=== PATIENT | male | born 1995 | race African-American/Black ===

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

== ENCOUNTER 2018-08-08 00:22 | Emergency (ER) | payer BC, OTHER ==
[2018-08-08 01:26] LABS: Appearance,Urine Clear (Clear); Bilirubin,Urine Negative (Negative); Blood,Urine Negative (Negative); Color,Urine Yellow; Glucose,Urine (UA) Negative (Negative); Ketones,Urine Negative (Negative); Leukocyte Esterase,Urine Negative (Negative); Nitrite,Urine Negative (Negative); PH, Urine 5.5 (5.0-8.0); Protein,Urine Trace (Negative); Specific Gravity,Urine 1.023 (1.001-1.035); Urobilinogen,Urine <2.0 mg/dL (<2.0)
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
[2018-08-08] MEDS ORDERED: cefTRIAXone 250 MG VIAL IM STA (01:58)
[2018-08-08] MEDS ORDERED: AZITHROMYCIN 250 MG TAB PO STA (01:58)
[2018-08-08 02:25] VITALS: BP 118/82; PULSE 67; RESP 16; TEMP 98
[2018-08-09 13:56] LABS: C. trachomatis,PCR Negative (Neg,Equiv); Chlamydia trachomatis Source Urine; N. gonorrhoeae,PCR Negative (Neg,Equiv); Neisseria Source Urine
== END 2018-08-08 02:24 | disposition home or self-care (01) ==
LOC: EC 00:22
DX: Z20.2 Contact with and (suspected) exposure to infections with a predominantly sexual mode of transmission (principal); F17.200 Nicotine dependence, unspecified, uncomplicated
CPT/HCPCS: 81003; 87491; 87591; 99283; 96372; J0696

== ENCOUNTER 2018-08-14 15:12 | Inpatient (IN) | payer BC ==
--- NOTE | 2018-08-14 15:36 | ED ---
General Adult HPI - General Chief complaint: Psychiatric Symptoms Stated complaint: Mental Health Time Seen by Provider: 08/14/18 15:22 Source: patient, RN notes reviewed Mode of arrival: ambulatory Limitations: no limitations - History of Present Illness Initial comments: Patient is a pleasant 22-year-old male presenting to the emergency department with concerns for mental health evaluation. Patient states symptoms have progressed over the past few months. no history of similar symptoms. Patient states he is having racing thoughts and is hard to concentrate. Patient does hear voices. Patient occasionally has thoughts of self-harm however does not believe he would act on them. No homicidal thoughts. Patient does feel paranoid at times. Patient denies any homicidal thoughts. Rare alcohol use. Patient has previously used methamphetamine and Suboxone however does not use frequently. No physical complaints. - Related Data Home Medications Medication Instructions Recorded Confirmed No Known Home Medications 08/24/16 08/24/16 Allergies Allergy/AdvReac Type Severity Reaction Status Date / Time No Known Allergies Allergy Verified 08/14/18 15:20 Review of Systems ROS Statement: Those systems with pertinent positive or pertinent negative responses have been documented in the HPI. ROS Other: All systems not noted in ROS Statement are negative. Constitutional: Denies: fever Eyes: Denies: eye pain ENT: Denies: ear pain Respiratory: Denies: cough Cardiovascular: Denies: chest pain Endocrine: Denies: fatigue Gastrointestinal: Denies: abdominal pain Genitourinary: Denies: dysuria Musculoskeletal: Denies: back pain Skin: Denies: rash Neurological: Denies: headache, weakness Psychiatric: Reports: auditory hallucinations Past Medical History Past Medical History: No Reported History History of Any Multi-Drug Resistant Organisms: None Reported Past Surgical History: No Surgical Hx Reported Past Psychological History: Depression Smoking Status: Current every day smoker Past Alcohol Use History: Occasional Past Drug Use History: Cocaine, Marijuana, Methamphetamine General Exam Limitations: no limitations General appearance: alert, in no apparent distress Head exam: Present: atraumatic Eye exam: Present: normal appearance, PERRL, EOMI. Absent: nystagmus ENT exam: Present: normal oropharynx Neck exam: Present: normal inspection Respiratory exam: Present: normal lung sounds bilaterally Cardiovascular Exam: Present: regular rate, normal rhythm GI/Abdominal exam: Present: soft. Absent: tenderness Extremities exam: Present: normal inspection Neurological exam: Present: alert Expanded Focused psych exam: Present: flight of ideas Skin exam: Present: normal color Course Vital Signs 08/14/18 15:14 Temperature 98.5 F Pulse Rate 99 Respiratory 18 Rate Blood Pressure 149/104 O2 Sat by Pulse 98 Oximetry Disposition Referrals: None,Stated [Primary Care Provider] - 1-2 days
[2018-08-14 18:11] LABS: Amphetamine Screen,Urine Not Detected (NotDetected); Barbiturate Screen,Urine Not Detected (NotDetected); Benzodiazepines Screen,Urine Not Detected (NotDetected); Cocaine Screen,Urine Not Detected (NotDetected); Methadone Screen, Urine Not Detected (NotDetected); Opiate Screen,Urine Not Detected (NotDetected); Oxycodone Screen, Urine Not Detected (NotDetected); Phencyclidine Screen,Urine Not Detected (NotDetected); Tricyclic Antidepressant,Urine Not Detected (NotDetected); Urn Cannabinoid Scrn Detected (NotDetected)
[2018-08-14] MEDS ORDERED: ALPRAZolam 1 MG TAB PO STA (18:18)
[2018-08-14] MEDS ORDERED: MAG HYDROX/AL HYDROX/SIMETH 30 ML CUP PO PRN (18:41)
[2018-08-14] MEDS ORDERED: ZIPRASIDONE 20 MG VIAL IM PRN (18:41)
[2018-08-14] MEDS ORDERED: MAGNESIUM HYDROXIDE 2,400 MG/10 ML CUP PO PRN (18:41)
[2018-08-14] MEDS: LORazepam 2 MG/ML INJ IM PRN (19:16)
--- NOTE | 2018-08-14 20:10 | P.PN ---
Progress Note - Text Progress Note Date: 08/14/18 Called and notified of consult. Per [facility] staff patient is not appropriate to be seen at this time as was agitated and required medications and now resting. Will call in AM to see if patient is appropriate for medical exam.
[2018-08-15] MEDS ORDERED: ZIPRASIDONE 20 MG VIAL IM ONE (08:27)
[2018-08-15] MEDS ORDERED: WATER FOR INJECTION, STERILE 0 ML IV ONE (08:27)
[2018-08-15 09:46] LABS: Basophils # (A) 0.1 k/uL (0-0.2); Basophils % (A) 1 %; Eosinophils # (A) 0.1 k/uL (0-0.7); Eosinophils % (A) 1 %; HCT 44.4 % (39.0-53.0); HGB 14.5 gm/dL (13.0-17.5); Lymphocytes # (A) 1.5 k/uL (1.0-4.8); Lymphocytes % (A) 20 %; MCH 30.2 pg (25.0-35.0); MCHC 32.6 g/dL (31.0-37.0); MCV 92.7 fL (80.0-100.0); Mean Platelet Volume 7.2; Monocytes # (A) 0.4 k/uL (0-1.0); Monocytes % (A) 6 %; Neutrophils # (A) 5.2 k/uL (1.3-7.7); Neutrophils % (A) 71 %; Platelet Count 227 k/uL (150-450); RBC 4.79 m/uL (4.30-5.90); RDW 13.9 % (11.5-15.5); WBC 7.4 k/uL (4.0-11.0)
[2018-08-15 10:21] LABS: ALT 29 U/L (21-72); AST 26 U/L (17-59); Albumin 4.5 g/dL (3.5-5.0); Alkaline Phosphatase 54 U/L (38-126); Anion Gap 6 mmol/L; Blood Urea Nitrogen 13 mg/dL (9-20); Calcium 9.8 mg/dL (8.4-10.2); Carbon Dioxide 30 mmol/L (22-30); Chloride 107 mmol/L (98-107); Cholesterol 116 mg/dL (<200); Glucose 84 mg/dL (74-99); HDL Cholesterol 44 mg/dL (40-60); LDL Cholesterol,Calculated 58 mg/dL (0-99); Potassium 4.2 mmol/L (3.5-5.1); Sodium 143 mmol/L (137-145); Total Bilirubin 0.8 mg/dL (0.2-1.3); Triglycerides 71 mg/dL (<150)
--- NOTE | 2018-08-15 14:05 | P.CONS ---
History of Present Illness - Reason for Consult Consult date: 08/15/18 Medical management - History of Present Illness This is a 22-year-old male with no significant past medical history who pre sented to the emergency room for further evaluation of racing thoughts and having hard time to concentrate. Patient said that his symptoms started several weeks ago and is being getting progressively worse. At times he feels that he is paranoid. He denies any visual or audible hallucination. No suicidal or homicidal ideation. Patient was admitted to the psych unit for further evaluation. I was asked to see him for medical management. Patient said that he feels a lot better today. He denies any complaints or concerns. Review of Systems Review of system: 14 points review of systems were obtained and were negative except to what were mentioned in the HPI. Past Medical History Past Medical History: No Reported History History of Any Multi-Drug Resistant Organisms: None Reported Past Surgical History: No Surgical Hx Reported Past Psychological History: Depression Smoking Status: Current every day smoker Past Alcohol Use History: Occasional Past Drug Use History: Cocaine, Marijuana, Methamphetamine Medications and Allergies Home Medications Medication Instructions Recorded Confirmed Type No Known Home Medications 08/24/16 08/14/18 History Allergies Allergy/AdvReac Type Severity Reaction Status Date / Time No Known Allergies Allergy Verified 08/14/18 17:08 Physical Exam Vitals: Vital Signs Temp Pulse Pulse Resp BP BP Pulse Ox 08/14/18 19:44 98.5 F 67 18 128/87 08/14/18 18:27 98.7 F 60 20 138/87 98 08/14/18 15:14 98.5 F 99 18 149/104 98 Intake and Output 08/14/18 08/15/18 08/15/18 22:59 06:59 14:59 Other: Weight 67.5 kg General: The patient is awake and alert, in no distress Eye: there is normal conjunctiva bilaterally. Neck: The neck is supple, there is no JVD. Cardiovascular: Normal S1-S2, no S3-S4, no murmurs. Respiratory: Lungs clear to auscultation bilaterally Gastrointestinal: Abdomen is soft, nontender Musculoskeletal: There is no pedal edema. Neurological:. Speech is normal. Skin: Skin is warm and dry Results CBC & Chem 7: 08/15/18 08:49 08/15/18 08:49 Labs: Abnormal Lab Results - Last 24 Hours (Table) 08/14/18 Range/Units 17:49 U Marijuana (THC) Screen Detected H (NotDetected) Assessment and Plan Assessment: 1. Acute psychosis, now resolved. Awaiting psychiatry evaluation. Management per psychiatry. 2. Marijuana abuse: Counseled to quit Today, I reviewed his medication list and lab work results. Thank you very much for the consultation. We will follow up on him on as needed basis.
[2018-08-15] MEDS: NICOTINE 14MG/24HR PATCH TRANSDERM SCH (15:47)
[2018-08-15 20:30] LABS: Hemoglobin A1C 5.2 % (4.0-6.0)
[2018-08-15] MEDS ORDERED: lamoTRIgine 25 MG TAB PO SCH (21:00)
[2018-08-15] MEDS ORDERED: PALIPERIDONE 3 MG TAB.ER.24 PO SCH (21:00)
[2018-08-16] MEDS: LORazepam 1 MG TAB PO PRN ×2 (00:48→18:44)
[2018-08-16] MEDS: NICOTINE 14MG/24HR PATCH TRANSDERM SCH (09:11)
[2018-08-16] MEDS: HALOPERIDOL LACTATE 5 MG/ML 1 ML VIAL IM PRN ×2 (09:25→22:50)
[2018-08-16] MEDS: LORazepam 2 MG/ML INJ IM PRN (09:33)
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
--- NOTE | 2018-08-16 12:06 | P.PN ---
Subjective Progress Note Date: 08/16/18 Principal diagnosis: Schizoaffective bipolar type 08/16/2018: Chart reviewed, discussed with nursing staff, discussed in team today regarding his acting out banging his head this morning and having difficulty focusing concentration. He was given Haldol and Ativan to calm himself down. When interviewed patient and his room use easily awoken and stated that the voices are still there is banging his head to get rid of the voices he feels afraid and he wants to get the medicine to help him to get better. He has depression and anxiety as well but with racing thoughts with the devil talking to in his brain. Objective - Vital Signs Vital signs: Vital Signs Temp 97.4 F L 08/16/18 01:06 Pulse 55 L 08/16/18 01:06 Resp 14 08/16/18 01:06 BP 148/93 08/16/18 01:06 Pulse Ox 98 08/14/18 18:27 - Labs CBC & Chem 7: 08/15/18 08:49 08/15/18 08:49 Assessment and Plan Assessment: Patient is a pleasant 22-year-old male presenting to the emergency department with concerns for mental health evaluation. Patient states symptoms have progressed over the past few months. no history of similar symptoms. Patient states he is having racing thoughts and is hard to concentrate. Patient does hear voices. Patient occasionally has thoughts of self-harm however does not believe he would act on them. No homicidal thoughts. Patient does feel paranoid at times. Patient denies any homicidal thoughts. Rare alcohol use. Patient has previously used methamphetamine and Suboxone however does not use frequently. No physical complaints. pt states that he is here because his mother dropped him off to "get help and see if I need pills or something." pt states, "I'm just being me. Trying to be a good person. Being an [place]. I mean, living the [place] dream. If I need pills, I'll take them. I'm not the type of person to abuse drugs. I abuse marijuana. I'm just being honest." pt reports that there are "things playing with my brain." When asked to elaborate, pt states that ghosts are playing with his brain. pt also reports that he has been attempting to get a medical [employer] card and feels as though this will help with his problems. When asked about current psychiatric treatment, pt states, "I hope not. Hope. I hope I don't, but I need it. Hope I don't even need the medicine." When asked about previous psychiatric hospitalization, pt states, "Besides paying $300 for a psych eval, no. I got it from that place behind [facility]. After I get that one, I'm going to a different one. Behind I don't know." pt also states that "my mind just thinks about random shit all the time." pt states that he has had suicidal ideation within the past 6 months. When asked if he currently was experiencing suicidal ideation, pt states, "Yes I have, but no. Just normal stuff like hey what's that." pt reports that he attempted suicide a couple of times in the past but was unable to recall when or what he did to attempt suicide. pt states, "Couple times but I tried not to. I try to stay happy more than anything. Making people happy makes me happy. It's not a surprise I want a dog named Happy. I have two dogs at home. I got coping skills. Not just pot or meth or anything like that. I got lots of coping skills." pt reports that he has difficulty falling asleep "because I feel like people are out to get me." pt also states, "When I sleep, all I see is black. I don't dream. I don't remember anything from 7 or 8. I'm just being honest." pt states that he has had a decrease and an increase in appetite and is unable to clarify if there is any change in appetite pt states that his use is "not often" and that it is "maybe one or two." When asked for clarification, pt states, "gram or 2 and then the next day a gram. Maybe. I don't know." pt then reports daily use and states, "I've been trying to get a medical care for a couple years." pt states that he does not drink [place]. pt reports, "If I do, I prefer like 2 shots. I really don't like alcohol. I think it's because my mom drinks wine coolers and I like those over anything." - Related Data Mental Status Examination - General Appearance: [ casual, appears stated age Speech/Language: [ rapid, rambled, mumbling, expressive, mute, loud Attitude/Behavior: [ guarded, irritable, withdrawn, indifferent Mood: [depressed, anxious, irritable, angry, fearful, hopelessness Affect: [ lively, incongruent, labile Orientation: [08/15/2018 time, person, place situation] Thought Content: [delusions Risk Factors: [command hallucinations to kill himself suicidal (ideations, plan), and/or Homicidal (ideations, plan)] Perception: [hallucinations (auditory, visual, tactile)] Thought Processes: [ concrete, circumstantial Concentration/Attention Span: [ impaired] [Per observation and interview with the patient] Recent Memory: [ impaired] [0 out of 3 in 3 minutes] Remote Memory: [ impaired] [past events, as related history] Intelligence: [below average] [based on history, based on vocabulary, syntax, grammar, and content] Judgement: [poor] [per patient's behavior/history of present illness] Insight: [ poor] [understanding severity of illness/history of present illness] Admitting Diagnosis: [schizoaffective disorder bipolar type acute psychosis] (1) Depressed Current Visit: Yes Status: Acute Code(s): F32.9 - MAJOR DEPRESSIVE DISORDER, SINGLE EPISODE, UNSPECIFIED SNOMED Code(s): 37727175 Plan: 08/16/2018: He was started on Invega and Lamictal on 08/15/2018. Today his mood is still incongruent and auditory and visual hallucinations continue. His dose of Invega will go to 6 mg by mouth daily at bedtime and Lamictal we'll go to 50 mg by mouth daily at bedtime. Close observation of this individual on 15 minute checks and encourage him to integrated [facility] milieu therapeutic environment including groups and meetings with staff. He has had a elevated blood pressure which I think is due to psychosis and possible withdrawal from the medicine that wasn't on urine drug screen and will use Catapres 0.1 mg by mouth twice a day. Time with Patient: Less than 30
[2018-08-16] MEDS: cloNIDine HCL 0.1 MG TAB PO SCH (20:59)
[2018-08-16] MEDS ORDERED: PALIPERIDONE 6 MG TAB.ER.24 PO SCH (21:00)
[2018-08-16] MEDS ORDERED: lamoTRIgine 25 MG TAB PO SCH (21:00)
[2018-08-17] MEDS: cloNIDine HCL 0.1 MG TAB PO SCH ×2 (08:17→21:04)
[2018-08-17] MEDS: NICOTINE 14MG/24HR PATCH TRANSDERM SCH (08:17)
--- NOTE | 2018-08-17 13:40 | P.PN ---
Subjective Progress Note Date: 08/17/18 Principal diagnosis: Schizoaffective bipolar type 08/16/2018: Chart reviewed, discussed with nursing staff, discussed in team today regarding his acting out banging his head this morning and having difficulty focusing concentration. He was given Haldol and Ativan to calm himself down. When interviewed patient and his room use easily awoken and stated that the voices are still there is banging his head to get rid of the voices he feels afraid and he wants to get the medicine to help him to get better. He has depression and anxiety as well but with racing thoughts with the devil talking to in his brain. 08/17/2018: Chart reviewed and discussed with nursing staff discussed in team. Patient was able to come up nursing staff last night and that he had hallucinations and had difficult time with them and ask for when necessary Haldol. Today he still is unsure of what a deferral from the court means and wants to go home and explained to him he cannot he is here on a court order to receive treatment. The voices are still prominent in his head telling him what to do. Objective - Vital Signs Vital signs: Vital Signs Temp 98.0 F 08/17/18 06:09 Pulse 73 08/17/18 06:09 Resp 14 08/17/18 06:09 BP 117/60 08/17/18 06:09 Pulse Ox 98 08/14/18 18:27 - Labs CBC & Chem 7: 08/15/18 08:49 08/15/18 08:49 Assessment and Plan Assessment: Patient is a pleasant 22-year-old male presenting to the emergency department with concerns for mental health evaluation. Patient states symptoms have progressed over the past few months. no history of similar symptoms. Patient states he is having racing thoughts and is hard to concentrate. Patient does hear voices. Patient occasionally has thoughts of self-harm however does not believe he would act on them. No homicidal thoughts. Patient does feel paranoid at times. Patient denies any homicidal thoughts. Rare alcohol use. Patient has previously used methamphetamine and Suboxone however does not use frequently. No physical complaints. pt states that he is here because his mother dropped him off to "get help and see if I need pills or something." pt states, "I'm just being me. Trying to be a good person. Being an [place]. I mean, living the [place] dream. If I need pills, I'll take them. I'm not the type of person to abuse drugs. I abuse marijuana. I'm just being honest." pt reports that there are "things playing with my brain." When asked to elaborate, pt states that ghosts are playing with his brain. pt also reports that he has been attempting to get a medical marijuana card and feels as though this will help with his problems. When asked about current psychiatric treatment, pt states, "I hope not. Hope. I hope I don't, but I need it. Hope I don't even need the medicine." When asked about previous psychiatric hospitalization, pt states, "Besides paying $300 for a psych eval, no. I got it from that place [facility]. After I get that one, I'm going to a different one. Behind I don't know." pt also states that "my mind just thinks about random shit all the time." pt states that he has had suicidal ideation within the past 6 months. When asked if he currently was experiencing suicidal ideation, pt states, "Yes I have, but no. Just normal stuff like hey what's that." pt reports that he attempted suicide a couple of times in the past but was unable to recall when or what he did to attempt suicide. pt states, "Couple times but I tried not to. I try to stay happy more than anything. Making people happy makes me happy. It's not a surprise I want a dog named Happy. I have two dogs at home. I got coping skills. Not just pot or meth or anything like that. I got lots of coping skills." pt reports that he has difficulty falling asleep "because I feel like people are out to get me." pt also states, "When I sleep, all I see is black. I don't dream. I don't remember anything from 7 or 8. I'm just being honest." pt states that he has had a decrease and an increase in appetite and is unable to clarify if there is any change in appetite pt states that his use is "not often" and that it is "maybe one or two." When asked for clarification, pt states, "gram or 2 and then the next day a gram. Maybe. I don't know." pt then reports daily use and states, "I've been trying to get a medical care for a couple years." pt states that he does not drink alcohol. pt reports, "If I do, I prefer like 2 shots. I really don't like alcohol. I think it's because my mom drinks wine coolers and I like those over anything." - Related Data Mental Status Examination - General Appearance: [ casual, appears stated age Speech/Language: [ rapid, rambled, mumbling, expressive, mute, loud Attitude/Behavior: [ guarded, irritable, withdrawn, indifferent Mood: [depressed, anxious, irritable, angry, fearful, hopelessness Affect: [ lively, incongruent, labile Orientation: [08/15/2018 time, person, place situation] Thought Content: [delusions Risk Factors: [command hallucinations to kill himself suicidal (ideations, plan), and/or Homicidal (ideations, plan)] Perception: [hallucinations (auditory, visual, tactile)] Thought Processes: [ concrete, circumstantial Concentration/Attention Span: [ impaired] [Per observation and interview with the patient] Recent Memory: [ impaired] [0 out of 3 in 3 minutes] Remote Memory: [ impaired] [past events, as related history] Intelligence: [below average] [based on history, based on vocabulary, syntax, grammar, and content] Judgement: [poor] [per patient's behavior/history of present illness] Insight: [ poor] [understanding severity of illness/history of present illness] Admitting Diagnosis: [schizoaffective disorder bipolar type acute psychosis] (1) Depressed Current Visit: Yes Status: Acute Code(s): F32.9 - MAJOR DEPRESSIVE DISORDER, SINGLE EPISODE, UNSPECIFIED SNOMED Code(s): 27933213 Plan: 08/16/2018: He was started on Invega and Lamictal on 08/15/2018. Today his mood is still incongruent and auditory and visual hallucinations continue. His dose of Invega will go to 6 mg by mouth daily at bedtime and Lamictal we'll go to 50 mg by mouth daily at bedtime. Close observation of this individual on 15 minute checks and encourage him to integrated [facility] [facility] therapeutic environment including groups and meetings with staff. He has had a elevated blood pressure which I think is due to psychosis and possible withdrawal from the medicine that wasn't on urine drug screen and will use Catapres 0.1 mg by mouth twice a day. 08/17/2018: Since he continues to have auditory hallucinations will increase his Invega to 9 mg by mouth daily at bedtime and increase his Lamictal to 100 mg by mouth daily at bedtime. Explained in detail with the deferral process was and the definition of insanity and told him that he is responding to internal stimuli while we are talking.. He also be on 15 minute checks and encourage him to integrated [place] [facility] milieu therapeutic environment including groups and meetings with staff. This young man still struggles with command hallucinations and fluctuating moods and rapid thoughts. He is a shelter hold. Time with Patient: Less than 30
[2018-08-17] MEDS ORDERED: PALIPERIDONE 3 MG TAB.ER.24 PO SCH (21:00)
[2018-08-17] MEDS ORDERED: lamoTRIgine 100 MG TAB PO SCH (21:00)
[2018-08-18] MEDS: LORazepam 2 MG/ML INJ IM PRN (02:06)
[2018-08-18] MEDS: HALOPERIDOL LACTATE 5 MG/ML 1 ML VIAL IM PRN ×2 (02:06→22:52)
[2018-08-18] MEDS ORDERED: LORazepam 2 MG/ML INJ IM STA (02:57)
[2018-08-18] MEDS ORDERED: LORazepam 1 MG TAB PO STA (02:57)
--- NOTE | 2018-08-18 03:25 | XR ---
EXAM: XR Right Hand Complete, 3 or More Views CLINICAL HISTORY: punched window out TECHNIQUE: Frontal, lateral and oblique views of the right hand. COMPARISON: No relevant prior studies available. FINDINGS: Bones/joints: Unremarkable. No fracture. No dislocation. Soft tissues: Unremarkable. No radiopaque foreign body. IMPRESSION: No fracture
[2018-08-18] MEDS: cloNIDine HCL 0.1 MG TAB PO SCH ×2 (08:03→20:20)
[2018-08-18] MEDS: NICOTINE 14MG/24HR PATCH TRANSDERM SCH (08:03)
[2018-08-18] MEDS ORDERED: PALIPERIDONE IM 234 MG/1.5 ML SYG IM STA ×2 (11:28→13:44)
--- NOTE | 2018-08-18 11:30 | P.PN ---
Subjective Progress Note Date: 08/18/18 Principal diagnosis: Schizoaffective bipolar type 08/16/2018: Chart reviewed, discussed with nursing staff, discussed in team today regarding his acting out banging his head this morning and having difficulty focusing concentration. He was given Haldol and Ativan to calm himself down. When interviewed patient and his room use easily awoken and stated that the voices are still there is banging his head to get rid of the voices he feels afraid and he wants to get the medicine to help him to get better. He has depression and anxiety as well but with racing thoughts with the devil talking to in his brain. 08/17/2018: Chart reviewed and discussed with nursing staff discussed in team. Patient was able to come up nursing staff last night and that he had hallucinations and had difficult time with them and ask for when necessary Haldol. Today he still is unsure of what a deferral from the court means and wants to go home and explained to him he cannot he is here on a court order to receive treatment. The voices are still prominent in his head telling him what to do. 08/18/2018: Chart reviewed and discussed nursing staff and had a team meeting this morning. Discussed with patient regarding the use of intramuscular Invega since he is on a court order it would be best to maintain his taking his medicines since she has voiced he does not want to take his medicines. He still responding to internal stimuli. Objective - Vital Signs Vital signs: Vital Signs Temp 99.3 F 08/18/18 00:16 Pulse 67 08/18/18 08:04 Resp 18 08/18/18 08:04 BP 139/82 08/18/18 08:04 Pulse Ox 98 08/14/18 18:27 - Labs CBC & Chem 7: 08/15/18 08:49 08/15/18 08:49 Assessment and Plan Assessment: Patient is a pleasant 22-year-old male presenting to the emergency department with concerns for mental health evaluation. Patient states symptoms have progressed over the past few months. no history of similar symptoms. Patient states he is having racing thoughts and is hard to concentrate. Patient does hear voices. Patient occasionally has thoughts of self-harm however does not believe he would act on them. No homicidal thoughts. Patient does feel paranoid at times. Patient denies any homicidal thoughts. Rare alcohol use. Patient has previously used methamphetamine and Suboxone however does not use frequently. No physical complaints. pt states that he is here because his mother dropped him off to "get help and see if I need pills or something." pt states, "I'm just being me. Trying to be a good person. Being an English. I mean, living the English dream. If I need pills, I'll take them. I'm not the type of person to abuse drugs. I abuse marijuana. I'm just being honest." pt reports that there are "things playing with my brain." When asked to elaborate, pt states that ghosts are playing with his brain. pt also reports that he has been attempting to get a medical marijuana card and feels as though this will help with his problems. When asked about current psychiatric treatment, pt states, "I hope not. Hope. I hope I don't, but I need it. Hope I don't even need the medicine." When asked about previous psychiatric hospitalization, pt states, "Besides paying $300 for a psych eval, no. I got it from that place behind [facility]. After I get that one, I'm going to a different one. Behind I don't know." pt also states that "my mind just thinks about random shit all the time." pt states that he has had suicidal ideation within the past 6 months. When asked if he currently was experiencing suicidal ideation, pt states, "Yes I have, but no. Just normal stuff like hey what's that." pt reports that he attempted suicide a couple of times in the past but was unable to recall when or what he did to attempt suicide. pt states, "Couple times but I tried not to. I try to stay happy more than anything. Making people happy makes me happy. It's not a surprise I want a dog named Happy. I have two dogs at home. I got coping skills. Not just pot or meth or anything like that. I got lots of coping skills." pt reports that he has difficulty falling asleep "because I feel like people are out to get me." pt also states, "When I sleep, all I see is black. I don't dream. I don't remember anything from 7 or 8. I'm just being honest." pt states that he has had a decrease and an increase in appetite and is unable to clarify if there is any change in appetite pt states that his use is "not often" and that it is "maybe one or two." When asked for clarification, pt states, "gram or 2 and then the next day a gram. Maybe. I don't know." pt then reports daily use and states, "I've been trying to get a medical care for a couple years." pt states that he does not drink alcohol. pt reports, "If I do, I prefer like 2 shots. I really don't like alcohol. I think it's because my mom drinks wine coolers and I like those over anything." - Related Data Mental Status Examination - General Appearance: [ casual, appears stated age Speech/Language: [ rapid, rambled, mumbling, expressive, mute, loud Attitude/Behavior: [ guarded, irritable, withdrawn, indifferent Mood: [depressed, anxious, irritable, angry, fearful, hopelessness Affect: [ lively, incongruent, labile Orientation: [08/15/2018 time, person, place situation] Thought Content: [delusions Risk Factors: [command hallucinations to kill himself suicidal (ideations, plan), and/or Homicidal (ideations, plan)] Perception: [hallucinations (auditory, visual, tactile)] Thought Processes: [ concrete, circumstantial Concentration/Attention Span: [ impaired] [Per observation and interview with the patient] Recent Memory: [ impaired] [0 out of 3 in 3 minutes] Remote Memory: [ impaired] [past events, as related history] Intelligence: [below average] [based on history, based on vocabulary, syntax, grammar, and content] Judgement: [poor] [per patient's behavior/history of present illness] Insight: [ poor] [understanding severity of illness/history of present illness] Admitting Diagnosis: [schizoaffective disorder bipolar type acute psychosis] (1) Depressed Current Visit: Yes Status: Acute Code(s): F32.9 - MAJOR DEPRESSIVE DISORDER, SINGLE EPISODE, UNSPECIFIED SNOMED Code(s): 75042864 Plan: 08/16/2018: He was started on Invega and Lamictal on 08/15/2018. Today his mood is still incongruent and auditory and visual hallucinations continue. His dose of Invega will go to 6 mg by mouth daily at bedtime and Lamictal we'll go to 50 mg by mouth daily at bedtime. Close observation of this individual on 15 minute checks and encourage him to integrated [place] milieu therapeutic environment including groups and meetings with staff. He has had a elevated blood pressure which I think is due to psychosis and possible withdrawal from the medicine that wasn't on urine drug screen and will use Catapres 0.1 mg by mouth twice a day. 08/17/2018: Since he continues to have auditory hallucinations will increase his Invega to 9 mg by mouth daily at bedtime and increase his Lamictal to 100 mg by mouth daily at bedtime. Explained in detail with the deferral process was and the definition of insanity and told him that he is responding to internal stimuli while we are talking.. He also be on 15 minute checks and encourage him to integrated [place] milieu milieu therapeutic environment including groups and meetings with staff. This young man still struggles with command hallucinations and fluctuating moods and rapid thoughts. 08/18/2018: He continues to have auditory hallucinations and will use Invega 234 mg injection today with his neck shot being 09/15/2018. His Lamictal was increased to 200 mg at bedtime. Discussed in detail the deferral process again he has a great misunderstanding that he is court ordered and treatment will continue. 15 minute checks should be maintained and encouraged him to be integrated in [place] milieu therapeutic environment. Time with Patient: Less than 30
[2018-08-18] MEDS: LORazepam 1 MG TAB PO PRN (16:54)
[2018-08-18] MEDS: BENZTROPINE MESYLATE 0.5 MG TAB PO SCH (20:20)
[2018-08-18] MEDS: lamoTRIgine 100 MG TAB PO SCH (20:20)
[2018-08-19] MEDS: LORazepam 1 MG TAB PO PRN ×3 (01:35→21:42)
[2018-08-19] MEDS: NICOTINE 14MG/24HR PATCH TRANSDERM SCH (07:53)
[2018-08-19] MEDS: cloNIDine HCL 0.1 MG TAB PO SCH ×2 (07:54→20:11)
[2018-08-19] MEDS: BENZTROPINE MESYLATE 0.5 MG TAB PO SCH ×2 (07:54→20:10)
--- NOTE | 2018-08-19 10:59 | P.PN ---
Progress Note - Text Interval history: The patient is found in the hallway he follows me to an interview room. He indicates his mood is okay. He endorses ongoing auditory hallucinations directing him to harm himself or caused property damage. He states he's had voices his whole life but they do seem to be worse recently. He has received his first invega systemic injection yesterday. He indicates that he has been eating he feels he sleeping fine staff reported he slept 5 hours and was restless. Mental status exam: The patient is alert he is a disheveled appearance he is dressed in his own clothing he seated in the chair calmly during the session. He keeps his arms folded during the conversation. He indicates having command auditory hallucinations directing harm to himself and to cause property damage. He feels he is able to manage these however. He feels since he's been on medication there has been some moments of peace in between the hallucinations. He is reporting no suicidal or homicidal thoughts. Affect is bizarre at times he will have exaggerated smiling at odd times. Insight and judgment limited. He demonstrates no repetitive involuntary movements. During the session he demonstrates no verbal or physical aggressiveness. Plan: The patient continues to experience acute symptoms of psychosis. Even though he did receive his first injection of Invega Sustenna we will transition him off of the oral more gradually. I will prescribe 6 mg at bedtime. Nursing staff report that he tends to have more agitation and psychosis in the evening hours. Vital signs reviewed they're within normal limits. We will continue to provide reality orientation when possible. Will continue to monitor him for safety.
[2018-08-19] MEDS: HALOPERIDOL LACTATE 5 MG/ML 1 ML VIAL IM PRN (13:53)
[2018-08-19] MEDS: PALIPERIDONE 6 MG TAB.ER.24 PO SCH (20:11)
[2018-08-19] MEDS: lamoTRIgine 100 MG TAB PO SCH (20:11)
[2018-08-19] MEDS: ACETAMINOPHEN TAB 325 MG TAB PO PRN (21:41)
[2018-08-20] MEDS: cloNIDine HCL 0.1 MG TAB PO SCH ×2 (08:15→20:12)
[2018-08-20] MEDS: BENZTROPINE MESYLATE 0.5 MG TAB PO SCH ×2 (08:15→20:12)
[2018-08-20] MEDS: NICOTINE 14MG/24HR PATCH TRANSDERM SCH (09:03)
[2018-08-20] MEDS: ACETAMINOPHEN TAB 325 MG TAB PO PRN (09:04)
[2018-08-20] MEDS: LORazepam 2 MG/ML INJ IM PRN (09:27)
[2018-08-20] MEDS: HALOPERIDOL LACTATE 5 MG/ML 1 ML VIAL IM PRN (09:27)
--- NOTE | 2018-08-20 11:54 | P.PN ---
Progress Note - Text Interval history: The patient is found in his room he follows me to an interview room. He indicates his mood is "grateful". He states his mood is good. He reports ongoing auditory hallucinations. Specifically today the voice told him to hit his head on something. He states "I'm not going to do that". He indicates the voices also told him to go to a window and hit his head on that. Again he indicates "I'm not going to do that". He feels that the medication is making the voices quieter at times. He states the only time they are not present is right before he goes to sleep. He indicates he slept throughout the night staff recorded he slept 5 hours. He states he had a good visit with family last evening. Mental status exam: The patient is alert he is dressed in his own clothing is a disheveled appearance. Eye contact is appropriate speech is fluent and spontaneous nonpressured. He has some exaggerated smiling at times. He reports command auditory hallucinations directing self-harm but he indicates he has some control over that. He demonstrates no verbal or physical aggressiveness. He demonstrates no involuntary repetitive movements. He maintains eye contact throughout the session. Insight and judgment slowly improving. Plan: The patient will continue on his current psychotropic medications we will give them time to demonstrate efficacy. We will continue to monitor him for safety. He is encouraged to participate in the milieu.
[2018-08-20] MEDS: lamoTRIgine 100 MG TAB PO SCH (20:11)
[2018-08-20] MEDS: LORazepam 1 MG TAB PO PRN (20:13)
[2018-08-20] MEDS: PALIPERIDONE 6 MG TAB.ER.24 PO SCH (20:13)
[2018-08-21 00:08] VITALS: BP 122/58; PULSE 71; RESP 14; TEMP 98.3
[2018-08-21] MEDS: NICOTINE 14MG/24HR PATCH TRANSDERM SCH (08:29)
[2018-08-21] MEDS: BENZTROPINE MESYLATE 0.5 MG TAB PO SCH (08:29)
[2018-08-21] MEDS: cloNIDine HCL 0.1 MG TAB PO SCH (08:29)
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
[2018-09-15] MEDS ORDERED: PALIPERIDONE IM 234 MG/1.5 ML SYG IM ONE (09:00)
== END 2018-08-21 13:21 | disposition home or self-care (01) | DRG 881 ==
LOC: EC 15:12 → 3MHU 18:22
PROVIDERS: ADMIT Psychiatry & Neurology Psychiatry; ATTEND Psychiatry & Neurology Psychiatry
DX: F32.9 Major depressive disorder, single episode, unspecified (principal); F25.0 Schizoaffective disorder, bipolar type; F41.9 Anxiety disorder, unspecified; F12.10 Cannabis abuse, uncomplicated; F17.219 Nicotine dependence, cigarettes, with unspecified nicotine-induced disorders; Z71.51 Drug abuse counseling and surveillance of drug abuser; R03.0 Elevated blood-pressure reading, without diagnosis of hypertension; Z91.5 Personal history of self-harm; Z91.19 Patient's noncompliance with other medical treatment and regimen
CPT/HCPCS: 80053; 80061; 80306; 82075; 83036; 84443; 85025; 99285

== ENCOUNTER 2019-04-16 13:22 | Emergency (ER) | payer BC, OTHER ==
[2019-04-16 13:31] VITALS: RESP 18; TEMP 98.2
[2019-04-16] MEDS ORDERED: SODIUM CHLORIDE 0.9% 1,000 ML IV STA (13:55)
--- NOTE | 2019-04-16 14:01 | ED ---
Chest Pain HPI - General Chief Complaint: Chest Pain Stated Complaint: SOB, heart problems, anxiety Time Seen by Provider: 04/16/19 13:37 Source: patient Mode of arrival: ambulatory Limitations: no limitations - History of Present Illness Initial Comments: Patient is a 23-year-old male presenting to emergency Department with complaints of shortness of breath, anxiety, chest pain that has been increasing over the past week. Patient states he has a history of bipolar and anxiety. Patient describes the chest pain as central and over to the left side and describes it as intermittent. Patient states when his anxiety worsens, he feels this chest pain increases. Patient states he also is complaining of increasing shortness of breath over the past week. Patient denies having chest pain or shortness of breath at this moment. Patient states he used to be on bipolar medication but stopped the medication several months ago. Patient started taking it again 2 days ago to see if that'll help with his symptoms. Patient has never day smoker. Patient denies fever, chills, nausea, vomiting, diarrhea. Patient has no other complaints at this time. Upon arrival to the ER, vital signs are stable. - Related Data Previous Rx's Medication Instructions Recorded Benztropine Mesylate [Cogentin] 0.5 mg PO BID 30 Days #60 tab 08/21/18 Nicotine 14Mg/24Hr Patch [Habitrol] 1 patch TRANSDERM DAILY 30 Days 08/21/18 #30 patch Paliperidone IM [Invega Sustenna] 234 mg IM ONCE 28 Days #1 syringe 08/21/18 Paliperidone [Invega] 6 mg PO HS 30 Days #30 tab.er.24 08/21/18 cloNIDine HCL [Catapres] 0.1 mg PO BID 30 Days #60 tab 08/21/18 lamoTRIgine [LaMICtal] 200 mg PO 2100 30 Days #60 tab 08/21/18 Allergies Allergy/AdvReac Type Severity Reaction Status Date / Time No Known Allergies Allergy Verified 04/16/19 13:26 Review of Systems ROS Statement: Those systems with pertinent positive or pertinent negative responses have been documented in the HPI. ROS Other: All systems not noted in ROS Statement are negative. EKG Findings - EKG Comments: EKG Findings:: Ventricular rate 64, MT interval 134, QTC 376. Normal sinus rhythm with sinus arrhythmia. No acute ST segment changes. Past Medical History Past Medical History: No Reported History History of Any Multi-Drug Resistant Organisms: None Reported Past Surgical History: No Surgical Hx Reported Past Psychological History: No Psychological Hx Reported, Depression Smoking Status: Current every day smoker Past Alcohol Use History: Occasional Past Drug Use History: None Reported, Cocaine, Marijuana, Methamphetamine General Exam - General Exam Comments Initial Comments: GENERAL: Well-appearing, well-nourished and in no acute distress. Patient resting comfortably and talking on his phone. HEAD: Atraumatic, normocephalic. EYES: Pupils equal round and reactive to light, extraocular movements intact, sclera anicteric, conjunctiva are normal. ENT: TMs normal, nares patent, oropharynx clear without exudates. Moist mucous membranes. NECK: Normal range of motion, supple without lymphadenopathy or JVD. LUNGS: Breath sounds clear to auscultation bilaterally and equal. No wheezes rales or rhonchi. HEART: Regular rate and rhythm without murmurs, rubs or gallops. ABDOMEN: Soft, nontender, normoactive bowel sounds. No guarding, no rebound. No masses appreciated. : Deferred EXTREMITIES: Normal range of motion, no pitting or edema. No clubbing or cyanosis. NEUROLOGICAL: Normal speech, normal gait. PSYCH: Normal mood, normal affect. SKIN: Warm, Dry, normal turgor, no rashes or lesions noted. Limitations: no limitations Course Vital Signs 04/16/19 13:26 Temperature 98.2 F Pulse Rate 79 Respiratory 18 Rate Blood Pressure 160/84 O2 Sat by Pulse 99 Oximetry Chest Pain [facility] Patient is a 23-year-old male presenting with chest pain shortness of breath 1 week. Patient has history of anxiety and bipolar. Patient has not vomited his medications in 7 months. Vital signs are stable. Exam is unremarkable. Lab work shows no acute findings, troponin is normal. EKG is normal. Chest x-ray is normal. I discussed with patient that his symptoms are most likely related to his anxiety. Patient has been comfortable and pain-free during his entire ER stay. Patient is stable for discharge at this time. Patient will follow up with his PCP. Patient is in agreement with this plan of care. Return parameters were discussed with the patient he verbalizes understanding. Case discussed with Dr. Fernandes. Disposition Clinical Impression: Atypical chest pain, Anxiety Disposition: HOME SELF-CARE Condition: Stable Instructions (If sedation given, give patient instructions): Anxiety (ED) Additional Instructions: Please return to the Emergency Department if symptoms worsen or any other concerns. Follow-up with PCP as discussed in one to 3 days. Is patient prescribed a controlled substance at d/c from ED?: No Referrals: Watson Villalobos MD [Primary Care Provider] - 1-2 days
[2019-04-16 14:41] LABS: Basophils % (A) 0 %; Eosinophils # (A) 0.1 k/uL (0-0.7); Eosinophils % (A) 1 %; HCT 50.1 % (39.0-53.0); HGB 16.7 gm/dL (13.0-17.5); Lymphocytes # (A) 1.7 k/uL (1.0-4.8); Lymphocytes % (A) 19 %; MCH 30.7 pg (25.0-35.0); MCHC 33.4 g/dL (31.0-37.0); MCV 91.8 fL (80.0-100.0); Mean Platelet Volume 6.9; Monocytes # (A) 0.4 k/uL (0-1.0); Monocytes % (A) 4 %; Neutrophils # (A) 6.5 k/uL (1.3-7.7); Neutrophils % (A) 74 %; Platelet Count 237 k/uL (150-450); RBC 5.46 m/uL (4.30-5.90); RDW 12.4 % (11.5-15.5); WBC 8.8 k/uL (3.8-10.6)
[2019-04-16 14:46] LABS: ALT 15 U/L (21-72); AST 32 U/L (17-59); African American GFR (CKD) >90 (>60 ml/min/1.73 sqM); Albumin 5.2 g/dL (3.5-5.0); Alkaline Phosphatase 63 U/L (38-126); Anion Gap 13 mmol/L; Blood Urea Nitrogen 11 mg/dL (9-20); Calcium 10.7 mg/dL (8.4-10.2); Carbon Dioxide 21 mmol/L (22-30); Chloride 109 mmol/L (98-107); Glucose 91 mg/dL (74-99); Magnesium 1.8 mg/dL (1.6-2.3); Non-African American GFR(CKD) >90 (>60 ml/min/1.73 sqM); Sodium 143 mmol/L (137-145); Total Bilirubin 1.2 mg/dL (0.2-1.3); Total Protein 8.3 g/dL (6.3-8.2)
[2019-04-16 14:47] LABS: Partial Thromboplastin Time 25.4 sec (22.0-30.0)
--- NOTE | 2019-04-16 14:47 | XR ---
EXAMINATION TYPE: XR chest 2V DATE OF EXAM: 04/16/2019 COMPARISON: 08/24/2016 TECHNIQUE: PA and lateral views submitted. HISTORY: Chest Pain FINDINGS: The lungs are clear and there is no pneumothorax, pleural effusion, or focal pneumonia. No overt fa ilure. IMPRESSION: 1. No acute process.
[2019-04-16 14:49] LABS: Potassium 4.3 mmol/L (3.5-5.1)
[2019-04-16 15:40] LABS: Appearance,Urine Clear (Clear); Bilirubin,Urine Negative (Negative); Blood,Urine Negative (Negative); Color,Urine Yellow; Glucose,Urine (UA) Negative (Negative); Ketones,Urine 2+ (Negative); Leukocyte Esterase,Urine Negative (Negative); Nitrite,Urine Negative (Negative); PH, Urine 6.5 (5.0-8.0); Protein,Urine Trace (Negative); Specific Gravity,Urine 1.031 (1.001-1.035)
[2019-04-16 15:41] VITALS: BP 121/83; PULSE 89
== END 2019-04-16 15:38 | disposition home or self-care (01) ==
LOC: EC 13:22
DX: F41.9 Anxiety disorder, unspecified (principal); R07.89 Other chest pain; F31.9 Bipolar disorder, unspecified; F17.200 Nicotine dependence, unspecified, uncomplicated; Z79.899 Other long term (current) drug therapy
CPT/HCPCS: 36415; 71046; 80053; 81003; 83735; 84484; 85025; 85610; 85730; 93005; 96360; 99285

== ENCOUNTER 2019-04-23 16:11 | Emergency (ER) | payer OTHER ==
[2019-04-23 16:48] VITALS: BP 150/85; RESP 18; TEMP 97.3
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
--- NOTE | 2019-04-23 17:22 | ED ---
General Adult HPI - General Chief complaint: Chest Pain Stated complaint: Rib pain Time Seen by Provider: 04/23/19 16:45 Source: patient, RN notes reviewed Mode of arrival: ambulatory Limitations: physical limitation - History of Present Illness Initial comments: 23-year-old male presents to the emergency department for right-sided rib pain. States it has been ongoing for a week. States she was using a couch when he turned wrong and felt a pop. States he has had pain ever since. States it radiates from the right the left sometimes but is worse on the right. Denies any other worsening symptoms.Patient has no other complaints at this time including shortness of breath, chest pain, abdominal pain, nausea or vomiting, headache, or visual changes. - Related Data Previous Rx's Medication Instructions Recorded Benztropine Mesylate [Cogentin] 0.5 mg PO BID 30 Days #60 tab 08/21/18 Nicotine 14Mg/24Hr Patch [Habitrol] 1 patch TRANSDERM DAILY 30 Days 08/21/18 #30 patch Paliperidone IM [Invega Sustenna] 234 mg IM ONCE 28 Days #1 syringe 08/21/18 Paliperidone [Invega] 6 mg PO HS 30 Days #30 tab.er.24 08/21/18 cloNIDine HCL [Catapres] 0.1 mg PO BID 30 Days #60 tab 08/21/18 lamoTRIgine [LaMICtal] 200 mg PO 2100 30 Days #60 tab 08/21/18 Allergies Allergy/AdvReac Type Severity Reaction Status Date / Time No Known Allergies Allergy Verified 04/23/19 16:48 Review of Systems ROS Statement: Those systems with pertinent positive or pertinent negative responses have been documented in the HPI. ROS Other: All systems not noted in ROS Statement are negative. Past Medical History Past Medical History: No Reported History History of Any Multi-Drug Resistant Organisms: None Reported Past Surgical History: No Surgical Hx Reported Past Psychological History: No Psychological Hx Reported, Depression Smoking Status: Current every day smoker Past Alcohol Use History: Occasional Past Drug Use History: None Reported, Cocaine, Marijuana, Methamphetamine General Exam Limitations: physical limitation General appearance: alert, in no apparent distress Head exam: Present: atraumatic, normocephalic, normal inspection Eye exam: Present: normal appearance, PERRL, EOMI. Absent: scleral icterus, conjunctival injection, periorbital swelling ENT exam: Present: normal exam, mucous membranes moist Neck exam: Present: normal inspection, full ROM. Absent: tenderness, meningismus, lymphadenopathy Respiratory exam: Present: normal lung sounds bilaterally, chest wall tenderness (pt has right-sided anterior chest wall tenderness). Absent: respiratory distress, wheezes, rales, rhonchi, stridor Cardiovascular Exam: Present: regular rate, normal rhythm, normal heart sounds. Absent: systolic murmur, diastolic murmur, rubs, gallop, clicks GI/Abdominal exam: Present: soft, normal bowel sounds. Absent: distended, tenderness, guarding, rebound, rigid Neurological exam: Present: alert Course Vital Signs 04/23/19 04/23/19 16:43 16:49 Temperature 97.3 F L Pulse Rate 74 Respiratory 18 18 Rate Blood Pressure 150/85 O2 Sat by Pulse 96 Oximetry Medical Decision Making - Medical Decision Making X-ray of the right-sided ribs with a PA chest x-ray shows a normal chest normal right ribs. Patient likely has a strain of the intercostal muscles. Patient will follow up with primary care in 1-2 days and return if he has any worsening symptoms. He denies any anterior chest pain or upper abdominal pain. Disposition Clinical Impression: Rib pain on right side, Intercostal muscle strain Disposition: HOME SELF-CARE Condition: Good Instructions (If sedation given, give patient instructions): Rib Contusion (ED) Additional Instructions: Please take Motrin and Tylenol for pain. Follow-up with primary care in 1-2 days. Return to the emergency department for any worsening symptoms. Is patient prescribed a controlled substance at d/c from ED?: No Referrals: Watson Villalobos MD [Primary Care Provider] - 1-2 days Time of Disposition: 17:21
[2019-04-23 17:38] VITALS: PULSE 78
== END 2019-04-23 17:35 | disposition home or self-care (01) ==
LOC: EC 16:11
DX: S29.011A Strain of muscle and tendon of front wall of thorax, initial encounter (principal); F17.200 Nicotine dependence, unspecified, uncomplicated; X50.9XXA Other and unspecified overexertion or strenuous movements or postures, initial encounter; Y93.89 Activity, other specified
CPT/HCPCS: 99284

== ENCOUNTER 2019-05-02 13:41 | Emergency (ER) | payer OTHER ==
[2019-05-02 13:55] VITALS: BP 166/74; PULSE 82; TEMP 99
[2019-05-02 14:25] VITALS: RESP 16
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
== END 2019-05-02 15:29 | disposition left against medical advice (07) ==
LOC: EC 13:41
DX: R10.9 Unspecified abdominal pain (principal); F32.9 Major depressive disorder, single episode, unspecified; F20.9 Schizophrenia, unspecified; F17.200 Nicotine dependence, unspecified, uncomplicated; Z79.899 Other long term (current) drug therapy; Z53.20 Procedure and treatment not carried out because of patient's decision for unspecified reasons
CPT/HCPCS: 82075; 99284

== ENCOUNTER 2019-05-04 19:18 | Emergency (ER) | payer OTHER ==
[2019-05-04 19:35] VITALS: BP 163/95; PULSE 88; RESP 16; TEMP 98.3
--- NOTE | 2019-05-04 20:31 | XR ---
EXAMINATION TYPE: XR KUB DATE OF EXAM: 05/04/2019 COMPARISON: 02/11/2014 HISTORY: Abdominal pain TECHNIQUE: 2 views FINDINGS: Bowel gas pattern is normal. There is no sign of intestinal obstruction or pneumoperitoneum . Fecal pattern is normal. There is rounded metallic density over the mid abdomen. Lung bases are caesar ar. There are no pathologic calcifications over the kidneys. IMPRESSION: Nonacute abdomen. No change.
[2019-05-04] MEDS ORDERED: MAG HYDROX/AL HYDROX/SIMETH 30 ML, HYOSCYAMINE ELIXIR 10 ML, LIDOCAINE VISCOUS 2% 10 ML PO STA ×3 (20:54)
--- NOTE | 2019-05-04 21:12 | ED ---
General Adult HPI - General Chief complaint: Abdominal Pain Stated complaint: Abd Pain Time Seen by Provider: 05/04/19 19:43 Source: patient, RN notes reviewed, old records reviewed Mode of arrival: ambulatory Limitations: no limitations - History of Present Illness Initial comments: 23-year-old male patient passed history of psychiatric complaints presents to ED for chief complaint of epigastric abdominal pain. Patient reports has been ongoing for 3 days. Reports that is nontender to palpation, however is more dull achy pain. Denies any other complaints at this time. Denies any suicidal onset ideations. Systemic: Pt denies fatigue, fever/chills, rash. Pt denies weakness, night sweats, weight loss. Neuro: Pt denies headache, visual disturbances, syncope or pre-syncope. HEENT: Pt denies ocular discharge or irritation, otalgia, rhinorrhea, pharyngitis or notable lymphadenopathy. Cardiopulmonary: Pt denies chest pain, SOB, heart palpitations, dyspnea on exertion. Abdominal/GI: Pt denies n/v/d. : Pt denies dysuria, burning w/ urination, frequency/urgency. Denies new onset urinary or bowel incontinence. MSK: Pt denies myalgia, loss of strength or function in extremities. Neuro: Pt denies new onset weakness, paresthesias. - Related Data Home Medications Medication Instructions Recorded Confirmed Lurasidone [Latuda] 20 mg PO HS 05/02/19 05/02/19 Allergies Allergy/AdvReac Type Severity Reaction Status Date / Time No Known Allergies Allergy Verified 05/04/19 19:35 Review of Systems ROS Statement: Those systems with pertinent positive or pertinent negative responses have been documented in the HPI. ROS Other: All systems not noted in ROS Statement are negative. Past Medical History Past Medical History: No Reported History History of Any Multi-Drug Resistant Organisms: None Reported Past Surgical History: No Surgical Hx Reported Past Psychological History: Depression Smoking Status: Current every day smoker Past Alcohol Use History: Occasional Past Drug Use History: None Reported, Cocaine, Marijuana, Methamphetamine General Exam - General Exam Comments Initial Comments: Constitutional: NAD, AOX3, Pt has pleasant affect. HEENT: NC/AT, trachea midline, neck supple, no lymphadenopathy. Posterior pharynx non erythematous, without exudates. External ears appear normal, without discharge. Mucous membranes moist. Eyes PERRLA, EOM intact. There is no scleral icterus. No pallor noted. Cardiopulmonary: RRR, no murmurs, rubs or gallops, no JVD noted. Lungs CTAB in anterior and posterior miller. No peripheral edema. Abdominal exam: Abdomen soft and non-distended. Abdomen non-tender to palpation in all 4 quadrants. Bowel sounds active in LLQ. No hepatosplenomegaly. No ecchymosis Neuro: CN II-XII grossly intact. No nuchal rigidity. No raccon eyes, no benoit sign, no hemotympanum. No cervical spinal tenderness. MSK: No posterior calf tenderness bilaterally, homans sign negative bilaterally. Posterior tibialis and radial pulse +2 bilaterally. Sensation intact in upper and lower extremities. Full active ROM in upper and lower extremities, 5/5 stregnth. Limitations: no limitations Course Vital Signs 05/04/19 19:33 Temperature 98.3 F Pulse Rate 88 Respiratory 16 Rate Blood Pressure 163/95 O2 Sat by Pulse 99 Oximetry Medical Decision Making - Medical Decision Making 23-year-old male patient presents to ED for chief complaint of 3 days of abdominal pain. Patient vital signs are stable, afebrile. Physical exam did not display any acute pathology, abdomen soft, nontender. Patient refuses all laboratory investigations. Patient has blood drawn. These any medications. Patient reports he only wants an x-ray. KUB did not display any acute process. Patient requesting discharge. Explained to patient that we do not rule out pathology as we have not done a laboratory investigations or any other further workup. Patient verbalized understanding. Patient to follow up with primary care provider tomorrow. Return to ER if condition worsens. Case discussed with Dr. Kc. Disposition Clinical Impression: Abdominal pain Disposition: HOME SELF-CARE Condition: Stable Instructions (If sedation given, give patient instructions): Abdominal Pain (ED) Additional Instructions: follow-up with primary care provider tomorrow. Return to ER if condition worsens in any way. Is patient prescribed a controlled substance at d/c from ED?: No Referrals: Watson Villalobos MD [Primary Care Provider] - 1-2 days
== END 2019-05-04 21:16 | disposition home or self-care (01) ==
LOC: EC 19:18
DX: R10.13 Epigastric pain (principal); F17.200 Nicotine dependence, unspecified, uncomplicated; F32.9 Major depressive disorder, single episode, unspecified; Z79.899 Other long term (current) drug therapy
CPT/HCPCS: 74018; 99284

== ENCOUNTER 2019-10-25 14:56 | Inpatient (IN) | payer MEDICAID, OTHER ==
--- NOTE | 2019-10-25 15:16 | ED ---
General Adult HPI - General Chief complaint: Psychiatric Symptoms Stated complaint: mental issues/petition Time Seen by Provider: 10/25/19 15:00 Source: patient, family, EMS, RN notes reviewed, old records reviewed Mode of arrival: ambulatory Limitations: altered mental status - History of Present Illness Initial comments: This is a 24-year-old male who presents emergency Department with his mother and she wants to petition because he is acting very bizarre. Aggressive and argumentative. Mom states he is a schizophrenic and she doesn't know if he doesn't does not take his medications he also has some history of methamphetamine and she doesn't know if he is doing anything. Mom states his behaviors become more more bizarre over the last 3 or 4 days and this happened before and he needed to be admitted in the past. Patient denies hearing any voices or seeing anything abnormal. Patient denies any suicidal homicidal ideations. Patient complains of a mild headache but has no other physical complaints. Mom states the patient is very paranoid thinks everybody is out to her. She was so nervous last night that she called the police. - Related Data Home Medications Medication Instructions Recorded Confirmed Amantadine HCl [Amantadine] 100 mg PO DAILY 10/25/19 10/25/19 Atenolol [Tenormin] 25 mg PO HS 10/25/19 10/25/19 Cariprazine HCl [Vraylar] 3 mg PO DAILY 10/25/19 10/25/19 Allergies Allergy/AdvReac Type Severity Reaction Status Date / Time No Known Allergies Allergy Verified 10/25/19 17:04 Review of Systems ROS Statement: Those systems with pertinent positive or pertinent negative responses have been documented in the HPI. ROS Other: All systems not noted in ROS Statement are negative. Past Medical History Past Medical History: No Reported History History of Any Multi-Drug Resistant Organisms: None Reported Past Surgical History: No Surgical Hx Reported Past Psychological History: Depression Smoking Status: Current every day smoker Past Alcohol Use History: Occasional Past Drug Use History: None Reported, Cocaine, Marijuana, Methamphetamine General Exam - General Exam Comments Initial Comments: GENERAL: Patient is well-developed and well-nourished. Patient is nontoxic and well- hydrated and is in no acute distress. ENT: Neck is soft and supple. Neck has full range of motion without eliciting any pain. EYES: The sclera were anicteric and conjunctiva were pink and moist. Extraocular movements were intact and pupils were equal round and reactive to light. Eyelids were unremarkable. PULMONARY: Unlabored respirations. Good breath sounds bilaterally. No audible rales rhonchi or wheezing was noted. CARDIOVASCULAR: There is a regular rate and rhythm without any murmurs gallops or rubs. ABDOMEN: Soft and nontender with normal bowel sounds. SKIN: Skin is clear with no lesions or rashes and otherwise unremarkable. NEUROLOGIC: Patient is alert and oriented x3. Cranial nerves II through XII are grossly intact. Motor and sensory are also intact. Normal speech, volume and content. Symmetrical smile. MUSCULOSKELETAL: Normal extremities with adequate strength and full range of motion. PSYCHIATRIC: Patient is claiming he hasn't had any methamphetamine recently but he states that he has the feeling that has metastasis to me doesn't how it got there. She was very loud and somewhat uncooperative. Mom states at home he is becoming quite belligerent and acting out quite a bit. Limitations: altered mental status Course Vital Signs 10/25/19 10/25/19 15:03 16:43 Temperature 98.2 F Pulse Rate 97 121 H Respiratory 18 18 Rate Blood Pressure 151/101 163/107 O2 Sat by Pulse 97 99 Oximetry Medical Decision Making - Lab Data Lab Results 10/25/19 10/25/19 Range/Units 15:26 15:26 Urine Color Yellow Urine Appearance Clear (Clear) Urine pH 6.5 (5.0-8.0) Ur Specific [place] 1.026 (1.001-1.035) Urine Protein Trace H (Negative) Urine Glucose (UA) Negative (Negative) Urine Ketones Trace H (Negative) Urine Blood Negative (Negative) Urine Nitrite Negative (Negative) Urine Bilirubin Negative (Negative) Urine Urobilinogen 3.0 (<2.0) mg/dL Ur Leukocyte Esterase Negative (Negative) Urine Opiates Screen Not Detected (NotDetected) Ur Oxycodone Screen Not Detected (NotDetected) Urine Methadone Screen Not Detected (NotDetected) Ur Propoxyphene Screen Not Detected (NotDetected) Ur Barbiturates Screen Not Detected (NotDetected) U Tricyclic Antidepress Not Detected (NotDetected) Ur Phencyclidine Scrn Not Detected (NotDetected) Ur Amphetamines Screen Not Detected (NotDetected) U Methamphetamines Scrn Not Detected (NotDetected) U Benzodiazepines Scrn Not Detected (NotDetected) Urine Cocaine Screen Not Detected (NotDetected) U Marijuana (THC) Screen Detected H (NotDetected) Disposition Clinical Impression: Acute exacerbation of chronic schizophrenia Disposition: ADMITTED IP TO THIS HOSP Referrals: Watson Villalobos MD [Primary Care Provider] - 1-2 days Time of Disposition: 17:41
[2019-10-25 15:34] LABS: Appearance,Urine Clear (Clear); Bilirubin,Urine Negative (Negative); Blood,Urine Negative (Negative); Color,Urine Yellow; Glucose,Urine (UA) Negative (Negative); Ketones,Urine Trace (Negative); Leukocyte Esterase,Urine Negative (Negative); Nitrite,Urine Negative (Negative); PH, Urine 6.5 (5.0-8.0); Protein,Urine Trace (Negative); Specific Gravity,Urine 1.026 (1.001-1.035)
[2019-10-25] MEDS ORDERED: LORazepam 1 MG TAB PO STA (16:58)
[2019-10-25 17:33] LABS: Amphetamine Screen,Urine Not Detected (NotDetected); Barbiturate Screen,Urine Not Detected (NotDetected); Benzodiazepines Screen,Urine Not Detected (NotDetected); Cocaine Screen,Urine Not Detected (NotDetected); Methadone Screen, Urine Not Detected (NotDetected); Opiate Screen,Urine Not Detected (NotDetected); Oxycodone Screen, Urine Not Detected (NotDetected); Phencyclidine Screen,Urine Not Detected (NotDetected); Tricyclic Antidepressant,Urine Not Detected (NotDetected); Urn Cannabinoid Scrn Detected (NotDetected)
[2019-10-25] MEDS ORDERED: LORazepam 1 MG TAB PO PRN (19:10)
[2019-10-25] MEDS ORDERED: MAGNESIUM HYDROXIDE 2,400 MG/10 ML CUP PO PRN (19:10)
[2019-10-25] MEDS ORDERED: MAG HYDROX/AL HYDROX/SIMETH 30 ML CUP PO PRN (19:10)
[2019-10-25] MEDS: ATENOLOL 25 MG TAB PO SCH (22:48)
[2019-10-26] MEDS: ACETAMINOPHEN TAB 325 MG TAB PO PRN ×3 (04:20→19:19)
[2019-10-26 08:15] LABS: Basophils # (A) 0.1 k/uL (0-0.2); Basophils % (A) 0 %; Eosinophils # (A) 0.1 k/uL (0-0.7); Eosinophils % (A) 1 %; HCT 46.7 % (39.0-53.0); HGB 15.1 gm/dL (13.0-17.5); Lymphocytes # (A) 2.2 k/uL (1.0-4.8); Lymphocytes % (A) 18 %; MCH 30.5 pg (25.0-35.0); MCHC 32.2 g/dL (31.0-37.0); MCV 94.5 fL (80.0-100.0); Mean Platelet Volume 7.8; Monocytes # (A) 0.6 k/uL (0-1.0); Monocytes % (A) 5 %; Neutrophils # (A) 8.6 k/uL (1.3-7.7); Neutrophils % (A) 73 %; Platelet Count 245 k/uL (150-450); RBC 4.94 m/uL (4.30-5.90); RDW 12.7 % (11.5-15.5); WBC 11.9 k/uL (3.8-10.6)
[2019-10-26 08:33] LABS: ALT 21 U/L (4-49); AST 33 U/L (17-59); African American GFR (CKD) >90 (>60 ml/min/1.73 sqM); Albumin 4.5 g/dL (3.5-5.0); Alkaline Phosphatase 67 U/L (38-126); Anion Gap 11 mmol/L; Blood Urea Nitrogen 10 mg/dL (9-20); Calcium 9.8 mg/dL (8.4-10.2); Carbon Dioxide 28 mmol/L (22-30); Chloride 104 mmol/L (98-107); Cholesterol 94 mg/dL (<200); Glucose 95 mg/dL (74-99); HDL Cholesterol 35 mg/dL (40-60); LDL Cholesterol,Calculated 47 mg/dL (0-99); Non-African American GFR(CKD) >90 (>60 ml/min/1.73 sqM); Potassium 3.5 mmol/L (3.5-5.1); Sodium 143 mmol/L (137-145); Total Bilirubin 0.6 mg/dL (0.2-1.3); Total Protein 7.6 g/dL (6.3-8.2); Triglycerides 62 mg/dL (<150)
[2019-10-26] MEDS: NICOTINE 14MG/24HR PATCH TRANSDERM SCH (09:34)
[2019-10-26] MEDS: ARIPiprazole 15 MG TAB PO SCH (10:58)
[2019-10-26] MEDS ORDERED: LORazepam 2 MG/ML INJ IM STA (11:14)
[2019-10-26] MEDS ORDERED: LORazepam 2 MG/ML INJ ONE (11:15)
[2019-10-26] MEDS: ZIPRASIDONE 20 MG VIAL IM PRN (11:22)
[2019-10-26] MEDS: diphenhydrAMINE 25 MG CAP PO STA ×2 (11:40→11:42)
--- NOTE | 2019-10-26 13:32 | P.HP ---
Psychiatric H&P - . H&P Date: 10/26/19 History & Physical: IDENTIFYING DATA: Is a 24-year-old single male admitted to the psychiatric unit involuntarily. His mother completed the Petition for hospitalization that read "paranoid thoughts of others hurting or shooting him. Becomes aggressive. He called the police and EMS thinking we were trying to shoot him." HISTORY OF PRESENT ILLNESS: He was guarded and suspicious. He provided little information. He talked about "some people" trying to harm him but he would not talk about the specifics of this belief. He admitted that he thought that his medication was poisoned with methamphetamine. He also talked about feeling "electric shocks" when he was at home. He gave me permission to speak with his mother. After I spoke with his mother he approached me about the conversation. As I described my conversation with his mother he became increasingly paranoid, angry and threatening. He demanded to leave the hospital. His management required administration of intramuscular Geodon 20 mg with Ativan 2 mg. His mother complained that he is becoming more paranoid and delusional. He did not sleep the week prior to admission. He's been more aggressive and agitated. He repeatedly complained that he felt as though someone was "shocking" him. He also expressed the belief that someone was trying to harm him and that his family was trying to poison him. His mother mentioned that prior to the last admission he would not eat because he thought the family was trying to poison him. He told his mother that he thinks he is dying and complained that he smells "gunpowder." He complained that he believes his family is doing something to him and published on Facebook that his family is harming him. He had difficulty with his outpatient medicine because it involved a gradual titration of Vylar and liquid amantadine. I reviewed the [facility] record and they prescribed amantadine beginning at 2.5 mL daily and increasing on a weekly basis to 100 mg. By mouth also began Vraylar at 3 mg once every 3 days, then once every 2 days then once daily. PAST PSYCHIATRIC HISTORY: He had one prior admission to our psychiatric unit August 2018 was discharged with the diagnosis depression. His discharge medications included Catapres, Cogentin, Invega, Invega Sustenna and Lamictal. He is enrolled with [facility]. His last visit Garc[facility] 08/28/2019 PAST MEDICAL HISTORY: He has no history of major medical illnesses ALLERGIES: NO KNOWN DRUG ALLERGIES SUBSTANCE USE HISTORY: He admitted to occasionally smoking marijuana. His mother believes that his first admission was a result of using methamphetamine. She talked about him becoming involved with a girlfriend who used methamphetamine. She is unaware that he has been using any drugs prior to this admission. His UDS was positive for marijuana. FAMILY PSYCHIATRIC/SUBSTANCE USE HISTORY: He was unaware of family history of mental illness. His mother stated that his brother was diagnosed with schizophrenia. She came from a dysfunctional family where her father murdered her mother and then committed suicide. She has a sister with mental health issues. LEGAL HISTORY: He denied that he is on probation, parole or has pending charges. He has past charges of assault and battery and domestic violence. SOCIAL HISTORY: His born and raised by his mother. His parents when he was 9 years old. He has 3 biological sisters and 4 1/2 brothers from his dad second marriage. He has a history of dyslexia, conduct disorder and speech impediment. He was in special education throughout his educational years. He also was diagnosed with ADHD as a child and treated with this Concerta. He had school behavioral problems and was expelled from school in the 12th grade for fighting. He is currently unemployed. 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 He is single and has no children. MENTAL STATUS EXAM: he presented as a casually groomed well-developed male with close cropped hair. He made eye contact and appeared to attend to interview. He had no prominent physical abnormalities or distinguishing features. He had a tense facial expression. He was alert and oriented to person place and time. He showed no abnormality of psychomotor activity. He had no abnormal movements. Speech was not spontaneous and had decreased rate, rhythm and volume. His affect was guarded, suspicious, angry, irritable and anxious. He denied suicidal ideation and wishes. He denied homicidal ideation. He denied feeling hopeless, helpless or worthless. He ruminated about the circumstances that led to this hospitalization. He expressed ideas reference, paranoid ideation and paranoid delusional beliefs. His thinking was concrete but his associations were goal-directed. He described tactile hallucinations but denied visual or auditory hallucinations. Global impression of intellect is average to below. He has limited understanding of his mental illness and need for treatment. STRENGTHS: Good physical health, supportive family, good work history WEAKNESSES: History of substance use problems, cognitive impairment, poor compliance with treatment IMPRESSION: His 24-year-old single male admitted to the psychiatric unit involuntarily with recent onset of irritability, agitation and aggression and marked paranoia. There is a distant history of methamphetamine use but his urine drug screen was negative for methamphetamine. He may not been compliant with prescribed antipsychotic medication. The differential diagnosis includes schizophrenia or schizoaffective disorder as well as a bipolar illness. He has past diagnoses of ADHD, dyslexia and learning disability. He should be treated inpatient basis with accommodations psychopharmacology and multimodal therapy. PRINCIPLE DIAGNOSIS: unspecified psychotic disorder, rule out schizophrenia, rule out schizoaffective disorder, rule out bipolar disorder most recent episode hypomanic with psychotic features, rule out substance-induced psychotic disorder RECOMMENDATION: admitted to the psychiatric unit involuntarily. Safety precautions. Consult medicine for initial physical exam and medical history. reinforcing iron worker helper to obtain the psychosocial assessment and coordinate discharge and aftercare. Begin Abilify 15 mg daily and titrated according to clinical response and tolerance. Ativan 2 mg IM 3 times a day and Geodon 20 mg IM twice a day when necessary for agitation acute psychosis. Encourage participation in therapeutic groups and activities. Evaluate clinical status response to treatment daily basis. Allergies Allergy/AdvReac Type Severity Reaction Status Date / Time No Known Allergies Allergy Verified 10/25/19 17:04 Vital Signs Temp 99.0 F 10/26/19 02:18 Pulse 98 10/26/19 02:18 Resp 18 10/26/19 02:18 BP 146/96 10/26/19 02:18 Pulse Ox 97 10/26/19 02:18 Intake & Output 10/25/19 10/26/19 10/26/19 18:59 06:59 18:59 Weight 63.503 kg 80 kg Laboratory Last Values WBC 11.9 k/uL (3.8-10.6) H 10/26/19 07:31 RBC 4.94 m/uL (4.30-5.90) 10/26/19 07:31 Hgb 15.1 gm/dL (13.0-17.5) 10/26/19 07:31 Hct 46.7 % (39.0-53.0) 10/26/19 07:31 MCV 94.5 fL (80.0-100.0) 10/26/19 07:31 MCH 30.5 pg (25.0-35.0) 10/26/19 07:31 MCHC 32.2 g/dL (31.0-37.0) 10/26/19 07:31 RDW 12.7 % (11.5-15.5) 10/26/19 07:31 Plt Count 245 k/uL (150-450) 10/26/19 07:31 Neutrophils % 73 % 10/26/19 07:31 Lymphocytes % 18 % 10/26/19 07:31 Monocytes % 5 % 10/26/19 07:31 Eosinophils % 1 % 10/26/19 07:31 Basophils % 0 % 10/26/19 07:31 Neutrophils # 8.6 k/uL (1.3-7.7) H 10/26/19 07:31 Lymphocytes # 2.2 k/uL (1.0-4.8) 10/26/19 07:31 Monocytes # 0.6 k/uL (0-1.0) 10/26/19 07:31 Eosinophils # 0.1 k/uL (0-0.7) 10/26/19 07:31 Basophils # 0.1 k/uL (0-0.2) 10/26/19 07:31 Sodium 143 mmol/L (137-145) 10/26/19 07:31 Potassium 3.5 mmol/L (3.5-5.1) 10/26/19 07:31 Chloride 104 mmol/L (98-107) 10/26/19 07:31 Carbon Dioxide 28 mmol/L (22-30) 10/26/19 07:31 Anion Gap 11 mmol/L 10/26/19 07:31 BUN 10 mg/dL (9-20) 10/26/19 07:31 Creatinine 0.98 mg/dL (0.66-1.25) 10/26/19 07:31 Est GFR (CKD-EPI)AfAm >90 (>60 ml/min/1.73 sqM) 10/26/19 07:31 Est GFR (CKD-EPI)NonAf >90 (>60 ml/min/1.73 sqM) 10/26/19 07:31 Glucose 95 mg/dL (74-99) 10/26/19 07:31 Calcium 9.8 mg/dL (8.4-10.2) 10/26/19 07:31 Total Bilirubin 0.6 mg/dL (0.2-1.3) 10/26/19 07:31 AST 33 U/L (17-59) 10/26/19 07:31 ALT 21 U/L (4-49) 10/26/19 07:31 Alkaline Phosphatase 67 U/L (38-126) 10/26/19 07:31 Total Protein 7.6 g/dL (6.3-8.2) 10/26/19 07:31 Albumin 4.5 g/dL (3.5-5.0) 10/26/19 07:31 Triglycerides 62 mg/dL (<150) 10/26/19 07:31 Cholesterol 94 mg/dL (<200) 10/26/19 07:31 LDL Cholesterol, Calc 47 mg/dL (0-99) 10/26/19 07:31 HDL Cholesterol 35 mg/dL (40-60) L 10/26/19 07:31 TSH 2.410 mIU/L (0.465-4.680) 10/26/19 07:31 Urine Color Yellow 10/25/19 15:26 Urine Appearance Clear (Clear) 10/25/19 15:26 Urine pH 6.5 (5.0-8.0) 10/25/19 15:26 Ur Specific Mobile 1.026 (1.001-1.035) 10/25/19 15:26 Urine Protein Trace (Negative) H 10/25/19 15:26 Urine Glucose (UA) Negative (Negative) 10/25/19 15:26 Urine Ketones Trace (Negative) H 10/25/19 15:26 Urine Blood Negative (Negative) 10/25/19 15:26 Urine Nitrite Negative (Negative) 10/25/19 15:26 Urine Bilirubin Negative (Negative) 10/25/19 15:26 Urine Urobilinogen 3.0 mg/dL (<2.0) 10/25/19 15:26 Ur Leukocyte Esterase Negative (Negative) 10/25/19 15:26 Urine Opiates Screen Not Detected (NotDetected) 10/25/19 15:26 Ur Oxycodone Screen Not Detected (NotDetected) 10/25/19 15:26 Urine Methadone Screen Not Detected (NotDetected) 10/25/19 15:26 Ur Propoxyphene Screen Not Detected (NotDetected) 10/25/19 15:26 Ur Barbiturates Screen Not Detected (NotDetected) 10/25/19 15:26 U Tricyclic Antidepress Not Detected (NotDetected) 10/25/19 15:26 Ur Phencyclidine Scrn Not Detected (NotDetected) 10/25/19 15:26 Ur Amphetamines Screen Not Detected (NotDetected) 10/25/19 15:26 U Methamphetamines Scrn Not Detected (NotDetected) 10/25/19 15:26 U Benzodiazepines Scrn Not Detected (NotDetected) 10/25/19 15:26 Urine Cocaine Screen Not Detected (NotDetected) 10/25/19 15:26 U Marijuana (THC) Screen Detected (NotDetected) H 10/25/19 15:26 10/26/19 13:10
--- NOTE | 2019-10-26 14:10 | P.MDCNMH ---
History of Present Illness H&P Date: 10/26/19 Chief Complaint: Mental issues 24-year-old male who presents emergency Department with his mother and she wants to petition because he is acting very bizarre. Aggressive and argumentative. Mom states he is a schizophrenic and she doesn't know if he doesn't does not take his medications he also has some history of methamphetamine and she doesn't know if he is doing anything. Mom states his behaviors become more more bizarre over the last 3 or 4 days and this happened before and he needed to be admitted in the past. Patient denies hearing any voices or seeing anything abnormal. Patient denies any suicidal homicidal ideations. Patient complains of a mild headache but has no other physical complaints. Mom states the patient is very paranoid thinks everybody is out to her. She was so nervous last night that she called the police. Review of Systems REVIEW OF SYSTEMS: CONSTITUTIONAL: No fever, no malaise, no fatigue. HEENT: No recent visual problems or hearing problems. Denied any sore throat. CARDIOVASCULAR: No chest pain, orthopnea, PND, no palpitations, no syncope. PULMONARY: No shortness of breath, no cough, no hemoptysis. GASTROINTESTINAL: No diarrhea, no nausea, no vomiting, no abdominal pain. NEUROLOGICAL: No headaches, no weakness, no numbness. HEMATOLOGICAL: Denies any bleeding or petechiae. GENITOURINARY: Denies any burning micturition, frequency, or urgency. MUSCULOSKELETAL/RHEUMATOLOGICAL: Denies any joint pain, swelling, or any muscle pain. ENDOCRINE: Denies any polyuria or polydipsia. The rest of the 14-point review of systems is negative. Past Medical History Past Medical History: No Reported History History of Any Multi-Drug Resistant Organisms: None Reported Past Surgical History: No Surgical Hx Reported Past Psychological History: Depression Smoking Status: Current every day smoker Past Alcohol Use History: Occasional Past Drug Use History: None Reported, Cocaine, Marijuana, Methamphetamine Medications and Allergies Home Medications Medication Instructions Recorded Confirmed Type Amantadine HCl [Amantadine] 100 mg PO DAILY 10/25/19 10/25/19 History Atenolol [Tenormin] 25 mg PO HS 10/25/19 10/25/19 History Cariprazine HCl [Vraylar] 3 mg PO DAILY 10/25/19 10/25/19 History Allergies Allergy/AdvReac Type Severity Reaction Status Date / Time No Known Allergies Allergy Verified 10/25/19 17:04 Physical Exam Vitals: Vital Signs Temp Pulse Pulse Resp BP BP Pulse Ox 10/26/19 02:18 99.0 F 98 18 146/96 97 10/25/19 19:21 97.5 F L 73 16 149/81 99 10/25/19 18:59 98.2 F 121 H 18 151/90 99 10/25/19 16:43 121 H 18 163/107 99 10/25/19 15:03 98.2 F 97 18 151/101 97 Intake and Output 10/25/19 10/26/19 10/26/19 22:59 06:59 14:59 Other: Weight 80 kg - Constitutional General appearance: Present: average body habitus, cooperative, no acute distress - EENT Eyes: Present: anicteric sclerae, EOMI, PERRLA, normal appearance ENT: Present: hearing grossly normal, normal oropharynx Ears: bilateral: normal - Neck Neck: Present: normal ROM. Absent: lymphadenopathy, rigidity, thyromegaly Carotids: negative: bruit present Thyroid: bilateral: normal size, negative: enlarged, nodule - Respiratory Respiratory: bilateral: CTA, negative: rales, rhonchi, wheezing - Cardiovascular Rhythm: regular Heart sounds: normal: S1, S2 Abnormal Heart Sounds: Absent: systolic murmur, diastolic murmur - Gastrointestinal General gastrointestinal: Present: normal bowel sounds, soft. Absent: distended, organomegaly, tenderness - Genitourinary Genitourinary Comment(s): deferred - Integumentary Integumentary: Present: normal turgor. Absent: jaundiced, rash, ulcer - Neurologic Neurologic: Present: CNII-XII intact. Absent: focal deficits - Musculoskeletal Musculoskeletal: Present: gait normal, strength equal bilaterally - Psychiatric Psychiatric: Present: A&O x's 3, appropriate affect, intact judgment & insight Cranial Nerve Examination - Cranial Nerves Cranial Nerve I- Olfactory: Intact Cranial Nerve II- Optic: Intact Cranial Nerve III- Oculomotor: Intact Cranial Nerve IV- Trochlear: Intact Cranial Nerve V- Trigeminal: Intact Cranial Nerve - Abducens: Intact Cranial Nerve VII- Facial: Intact Cranial Nerve VIII- Auditory: Intact Cranial Nerve IX- Glossopharyngeal: Intact Cranial Nerve X- Vagus: Intact Cranial Nerve XI- Accessory: Intact Cranial Nerve XII- Hypoglossal: Intact Results CBC & Chem 7: 10/26/19 07:31 10/26/19 07:31 Labs: Abnormal Lab Results - Last 24 Hours (Table) 10/25/19 10/25/19 10/26/19 Range/Units 15:26 15:26 07:31 WBC 11.9 H (3.8-10.6) k/uL Neutrophils # 8.6 H (1.3-7.7) k/uL HDL Cholesterol (40-60) mg/dL Urine Protein Trace H (Negative) Urine Ketones Trace H (Negative) U Marijuana (THC) Screen Detected H (NotDetected) 10/26/19 Range/Units 07:31 WBC (3.8-10.6) k/uL Neutrophils # (1.3-7.7) k/uL HDL Cholesterol 35 L (40-60) mg/dL Urine Protein (Negative) Urine Ketones (Negative) U Marijuana (THC) Screen (NotDetected) Assessment and Plan Assessment: 1. Acute exacerbation of chronic schizophrenia; your management 2. Hypertension; continue with current dose of Tenormin at 25 mg daily 3. Substance abuse; urine drug screen is positive for marijuana DVT prophylaxis; early ambulation CODE STATUS; full code Time with Patient: Greater than 30
[2019-10-26] MEDS: ATENOLOL 25 MG TAB PO SCH (21:01)
[2019-10-27] MEDS: ZIPRASIDONE 20 MG VIAL IM PRN (02:19)
[2019-10-27] MEDS: LORazepam 2 MG/ML INJ IM PRN ×2 (02:19→09:10)
[2019-10-27] MEDS: ARIPiprazole 15 MG TAB PO SCH (09:02)
[2019-10-27] MEDS ORDERED: HALOPERIDOL LACTATE 5 MG/ML 1 ML VIAL IM ONE (09:23)
[2019-10-27] MEDS: NICOTINE 14MG/24HR PATCH TRANSDERM SCH (09:33)
--- NOTE | 2019-10-27 10:22 | P.PN ---
Progress Note - Text Progress Note Date: 10/27/19 Interval history: Patient was seen wandering the hallways and was directable and agreeable to s peak with chart writer. Patient appeared to be irritable and demanding with chart writer. Patient was demanding to be discharged and states that "you guys messed up all my meds". When asked more about his medications patient claims that "I only need blood pressure medications". He states that he does go to [facility] however does not know his doctor. He appeared to be fairly agitated and aggressive this morning and required a PRN medication after patient barricaded himself in his room and in the bathroom as well. He states that his mood is "fine" however this is incongruent with his affect. He states that he slept well last night. At this time patient denies any suicidal or homicidal ideations intent or plan. Denies any Auditory or visual hallucinations. Patient denies any side effects from the medications and has been compliant with meds. Mental status exam: General Appearance: Patient appears to be stated age is alert, aggressive/agitated and also irritable. Behavior: Patient was noted to be aggressive/agitated earlier. Speech: Patient's speech is fluent and nonpressured. Loud at times Mood/Affect: Mood is "fine", affect is incongruent and labile. Suicidality/Homicidality: Patient denies having any suicidal or homicidal ideation intent or plan. Perceptions: Patient denies any auditory or visual hallucinations. Though content/process: There is no evidence of any delusional thought content and thought process is linear and goal-directed. Demanding discharge. Memory and concentration: AOX3, grossly intact for the purposes of this session Judgment and insight: Poor and impulsive Assessment/Plan: Continue with current diagnosis. Patient continues to meet criteria for inpatient psychiatric admission for symptom stabilization and safety.Patient will be maintained on current psychotropic medication regimen with the exception of increasing Abilify to 20 mg daily starting tomorrow for mood stabilization/psychosis. Switched to Geodon IM to Haldol IM PRN for agitation. Monitor for medication compliance and for any psychotropic medication side effects. Will continue to monitor ongoing response to treatment. Encouraged participation in milieu.
[2019-10-27] MEDS: ATENOLOL 25 MG TAB PO SCH ×2 (21:32→21:40)
[2019-10-27 23:13] LABS: Appearance,Urine Clear (Clear); Bilirubin,Urine Negative (Negative); Blood,Urine Negative (Negative); Color,Urine Light Yellow; Glucose,Urine (UA) Negative (Negative); Ketones,Urine Negative (Negative); Leukocyte Esterase,Urine Negative (Negative); Nitrite,Urine Negative (Negative); Protein,Urine Negative (Negative); Specific Gravity,Urine 1.005 (1.001-1.035); Urobilinogen,Urine <2.0 mg/dL (<2.0)
[2019-10-28] MEDS: ACETAMINOPHEN TAB 325 MG TAB PO PRN ×2 (01:53→14:04)
[2019-10-28] MEDS: LORazepam 2 MG/ML INJ IM PRN ×2 (07:40→15:13)
[2019-10-28] MEDS: HALOPERIDOL LACTATE 5 MG/ML 1 ML VIAL IM PRN ×2 (07:40→15:12)
[2019-10-28] MEDS: NICOTINE 14MG/24HR PATCH TRANSDERM SCH (08:16)
--- NOTE | 2019-10-28 11:14 | P.PN ---
Progress Note - Text Progress Note Date: 10/28/19 Interval history: Patient was seen in his room this morning and was directable and agreeable to speak with comic writer. The patient was less irritable today and more appropriately during conversation. Patient did receive a IM PRN medication earlier this morning for agitation. Patient has been continuing to take his medications as prescribed. Patient was focused on his ALLERGIES today and states that "the dust in the soap is giving me ALLERGY symptoms". He requested to be placed on Claritin and also asked for medication for anxiety during the day. He states that his mood has been gradually improving. He claims that he was able to sleep well last night. At this time patient denies any suicidal or homicidal ideations intent or plan. Denies any Auditory or visual hallucinations. Patient denies any side effects from the medications and has been compliant with meds. Mental status exam: General Appearance: Patient appears to be stated age is alert, less irritable today and more cooperative. Behavior: Patient was noted to be aggressive/agitated earlier. Cooperative today. Speech: Patient's speech is fluent and nonpressured. Mood/Affect: Mood is "ok", affect is incongruent and labile. Suicidality/Homicidality: Patient denies having any suicidal or homicidal ideation intent or plan. Perceptions: Patient denies any auditory or visual hallucinations. Though content/process: There is no evidence of any delusional thought content and thought process is linear and goal-directed. Memory and concentration: AOX3, grossly intact for the purposes of this session Judgment and insight: Poor and impulsive, mildly improving. Assessment/Plan: Continue with current diagnosis. Patient continues to meet criteria for inpatient psychiatric admission for symptom stabilization and safety.Patient will be maintained on current psychotropic medication regimen. Started patient on Vistaril 25 mg every 6 hours by mouth when necessary for anxiety. Added Claritin when necessary for ALLERGIES. Continue with Haldol IM PRN for agitation. Monitor for medication compliance and for any psychotropic medication side effects. Will continue to monitor ongoing response to treatment. Encouraged participation in milieu.
[2019-10-28] MEDS: hydrOXYzine PAMOATE 25 MG CAP PO PRN (13:54)
[2019-10-28] MEDS: LORATADINE 10 MG TAB PO PRN (14:04)
[2019-10-28] MEDS: diphenhydrAMINE 50 MG/ML 1 ML VIAL IM PRN (15:48)
--- NOTE | 2019-10-28 16:21 | P.MHFACE ---
Face to Face Restrain/Seclus - Evaluation Patient's Immediate Situation: Endangers self safety, Endangers staff safety, V iolent behavior Patient's Reaction to the Intervention: Uncooperative, Angry, Hostile, Belligerent, Aggressive, Combative, Resistive to care Patient's Medical & Behavioral Condition: Agitated Need to Continue or Terminate Restraint or Seclusion: Continue Need to Continue or Terminate Restraint/Seclusion - Comment: Patient was being violent and belligerent towards staff. Patient was threatening and punching the wall. He was placed in 4 point hard restraints and continued to resist, attempting to harm himself. He was given Ativan, Haldol and Benadryl.
[2019-10-28] MEDS ORDERED: ZIPRASIDONE 20 MG VIAL IM STA (16:30)
[2019-10-28] MEDS ORDERED: HALOPERIDOL LACTATE 5 MG/ML 1 ML VIAL IM STA (19:37)
[2019-10-28] MEDS ORDERED: LORazepam 2 MG/ML INJ IM STA (19:38)
[2019-10-29] MEDS: ATENOLOL 25 MG TAB PO SCH ×2 (01:30→20:42)
[2019-10-29] MEDS: LORazepam 2 MG/ML INJ IM PRN (07:05)
[2019-10-29] MEDS: HALOPERIDOL LACTATE 5 MG/ML 1 ML VIAL IM PRN (07:05)
[2019-10-29] MEDS: diphenhydrAMINE 50 MG/ML 1 ML VIAL IM PRN (07:29)
--- NOTE | 2019-10-29 08:09 | P.MHFACE ---
Face to Face Restrain/Seclus - Evaluation Patient's Immediate Situation: Endangers self safety, Endangers others' safety, Endangers staff safety, Violent behavior Patient's Reaction to the Intervention: Calm, Fearful, Suspicious Patient's Medical & Behavioral Condition: Alert, Follows directions Patient's Medical & Behavioral Condition - Comment: He was alert to maintain on the bed in 4. restraint. He made eye contact and appeared to attend to the interview. He explained that he "lost control" and "punched" wall and window. Need to Continue or Terminate Restraint or Seclusion: Terminate Need to Continue or Terminate Restraint/Seclusion - Comment: Place him on one-to-one perfectly with a security agent is a history of aggressive behavior.
--- NOTE | 2019-10-29 08:55 | XR ---
Bilateral hands HISTORY: Trauma and pain 3 views of each hand are submitted on a total 6 images. Correlation to prior right hand dated 9 Bone mineralization, joint spaces and alignment are maintained. No radiopaque foreign bodies. IMPRESSION: No fracture or dislocation of the hands.
[2019-10-29] MEDS: NICOTINE 14MG/24HR PATCH TRANSDERM SCH (09:08)
[2019-10-29] MEDS: hydrOXYzine PAMOATE 25 MG CAP PO PRN (09:57)
[2019-10-29] MEDS ORDERED: LORazepam 2 MG/ML INJ IM STA (10:00)
[2019-10-29] MEDS ORDERED: HALOPERIDOL LACTATE 5 MG/ML 1 ML VIAL IM STA (10:00)
[2019-10-29] MEDS ORDERED: diphenhydrAMINE 50 MG/ML 1 ML VIAL IM STA (10:01)
[2019-10-29] MEDS ORDERED: HALOPERIDOL LACTATE 5 MG/ML 1 ML VIAL IM PRN (10:05)
[2019-10-29] MEDS ORDERED: ZIPRASIDONE 20 MG VIAL IM PRN (10:05)
[2019-10-29] MEDS ORDERED: diphenhydrAMINE 50 MG/ML 1 ML VIAL IM PRN (10:06)
[2019-10-29] MEDS ORDERED: carBAMazepine 200 MG TAB PO STA (10:07)
--- NOTE | 2019-10-29 10:30 | P.MHFACE ---
Face to Face Restrain/Seclus - Evaluation Patient's Immediate Situation: Endangers self safety, Endangers others' safety, Endangers staff safety, Violent behavior Patient's Reaction to the Intervention: Angry, Aggressive, Combative Patient's Medical & Behavioral Condition: Awake, Alert, Drowsy, Confused Need to Continue or Terminate Restraint or Seclusion: Continue Need to Continue or Terminate Restraint/Seclusion - Comment: He is laying comfortably in bed in 4. restraints peers demand to be released from restraints and to be discharged from hospital. He does not believe there is a reason for this hospitalization. We talked about his lack controlling his anger and aggression he replied "you haven't seen me angry affect, I will bust out these windows (pointing to the window in the seclusion room)."
--- NOTE | 2019-10-29 11:57 | P.PN ---
Progress Note - Text Progress Note Date: 10/29/19 Clinical Problems: Bipolar disorder current episode manic with psychotic features, rule out schizoaffective disorder, learning disability, childhood onset conduct disorder Interim history: I reviewed the medical record, interviewed the patient and discuss his treatment and treatment plan during team meeting. When I arrived on the unit this morning he was in 4-point restraints after he punched out the window of the exit door. His management required a "Mr. strong" as well as seclusion and restraints. X-rays of his right wrist did not show fracture or dislocation. Over the weekend he is had several episodes of aggressive and threatening behavior requiring intramuscular medications. He was punching the hooks and attempted to barricade himself in the bathroom. He was also restrained on 10/28/2019 after screaming, punching hooks and threatening staff. He was calm after his release from restraint but quickly escalated. He was threatening staff demanding to leave the hospital. He would not calm with redirection and received 5 mg of Haldol, 2 mg of Ativan and 50 mg of Benadryl IM. His agitation and threatening behavior continues to escalate he was again placed in restraints. He has a one-to-one with a personnel security assistant due to his aggressive and violent behavior. Mental status exam: He presented as a well-developed well-nourished 24-year-old Somali male who was restless and angry. He was demanding to leave the unit and threatening staff. He is irritable and easily provoked. His thinking is disorganized. Assessment: He is moderately mentally ill and at rest for harm to both himself and treatment staff. Plan: Continue one-to-one with personnel security assistant. Continue with involuntary hospitalization. Continue Abilify 20 mg daily with plan to transition to Abilify [facility]. Begin Depakote 200 mg and titrate by 200 mg daily. Haldol 5 mg, Ativan 2 mg and Benadryl 50 mg IM every 6 hours when necessary for agitation or aggression. Geodon 20 mg IM twice a day when necessary for agitation acute psychosis, Ativan 1 mg by mouth 3 times a day for agitation.
[2019-10-29] MEDS: ACETAMINOPHEN TAB 325 MG TAB PO PRN (20:42)
[2019-10-30] MEDS: LORATADINE 10 MG TAB PO PRN (07:43)
[2019-10-30] MEDS: ACETAMINOPHEN TAB 325 MG TAB PO PRN (07:43)
[2019-10-30] MEDS: hydrOXYzine PAMOATE 25 MG CAP PO PRN (07:47)
[2019-10-30] MEDS: carBAMazepine 200 MG TAB PO SCH ×2 (07:47→20:27)
[2019-10-30] MEDS: NICOTINE 14MG/24HR PATCH TRANSDERM SCH ×2 (07:48→16:42)
[2019-10-30] MEDS: LORazepam 1 MG TAB PO PRN ×2 (11:44→20:26)
[2019-10-30] MEDS: HALOPERIDOL 5 MG TAB PO PRN (11:44)
[2019-10-30] MEDS: diphenhydrAMINE 50 MG CAP PO PRN (11:46)
--- NOTE | 2019-10-30 11:47 | P.PN ---
Progress Note - Text Progress Note Date: 10/30/19 Clinical Problems: Bipolar disorder current episode manic with psychotic features, rule out schizoaffective disorder, learning disability, childhood onset conduct disorder Interim history: I reviewed the medical record, interviewed the patient and discuss his treatment and treatment plan during team meeting. He remains on one-to-one with security due to his history of aggressive behavior and threats of violence. I interviewed him in the library with the windows security engineer present. Maycol denied problems or concerns and demanded to be discharged. He alleged that he is "doing better" and complying with medication. Although he was initially pleasant and cooperative he became increasingly irritable, angry and demanding when I would not agree to discharging him. His anger did not escalate to shouting or threats of violence. I tried to explain the reasons. He had threatened multiple staff several times both Tuesday and yesterday. He was placed in restraints and received multiple injections of medications because his aggressive and threatening behavior. He denied that he was placed in restraints and administered intramuscular medications yesterday despite myself, a customer service security officer and the nurse telling him otherwise. He alleged that we are "lying" in order to keep him in the hospital. When he realized I would not agree with discharging him today he leaned back in his chair and asked to discuss my problems. Apparently, since I would not agree to discharge him I have some deep interpersonal problems would need to be addressed. He has been compliant with prescribed medication and has had no episodes of behavioral dyscontrol over the last 24 hours. He spoke with his mergers and acquisitions attorney yesterday and deferred the probate hearing. Mental status exam: He presented as a well-developed well-nourished 24-year-old Afghan male who was initially pleasant on approach. He made eye contact and appeared to attend to the interview. He had no distinguishing features or prominent physical abnormalities. He had a angry but controlled facial expression. He was not restless or as agitated. Her speech was spontaneous with a measured rate and volume. His affect was irritable, angry. He denied suicidal ideation, wishes homicidal ideation. He expressed feelings of hopelessness and helplessness regarding this hospitalization. He ruminated about discharge. He did not express clear ideas reference. He was paranoid and suspicious and expressed paranoid ideation and denied recent actions and behaviors. His thinking was concrete but his associations were organized and goal directed. He denied hallucinations and did not appear to be responding to internal stimuli. Assessment: He is less aggressive and threatening but remains paranoid and suspicious. I do not agree with the deferral status due to his paranoia, continued irritability and denial of his aggressive, hostile and threatening behavior. Plan: Continue one-to-one with customer service security officer. Continue with involuntary hospitalization. Continue Abilify 20 mg daily with plan to transition to [facility]. Continue Tegretol 200 mg twice a day and titrated to 400 mg twice a day. Haldol 5 mg, Ativan 2 mg and Benadryl 50 mg IM/PO every 6 hours when necessary for agitation or aggression. Geodon 20 mg IM twice a day when necessary for agitation acute psychosis, Ativan 1 mg by mouth 3 times a day for agitation.
[2019-10-30] MEDS: ATENOLOL 25 MG TAB PO SCH (20:27)
[2019-10-31] MEDS: NICOTINE 14MG/24HR PATCH TRANSDERM SCH (08:59)
[2019-10-31] MEDS: carBAMazepine 200 MG TAB PO SCH ×3 (09:00→20:54)
[2019-10-31] MEDS: diphenhydrAMINE 50 MG CAP PO PRN (09:01)
[2019-10-31] MEDS: ACETAMINOPHEN TAB 325 MG TAB PO PRN ×2 (09:01→15:49)
--- NOTE | 2019-10-31 11:26 | P.PN ---
Progress Note - Text Progress Note Date: 10/31/19 Clinical Problems: Bipolar disorder current episode manic with psychotic features, rule out schizoaffective disorder, learning disability, childhood onset conduct disorder Interim history: I reviewed the medical record, interviewed the patient and discuss his treatment and treatment plan during team meeting. He remains on one-to-one with security due to his history of aggressive behavior and threats of violence. I interviewed him in the library with the security researcher present. Maycol want to talk about discharge. I explained that the discharge was involved process where we first decide whether he needs to have a one-to-one. This decision will be a consensus among staff regarding his risk for aggression or violence. After we discontinued the one-to-one we will again need a consensus that he is not at risk for aggressive or violent behavior when he is not under close supervision. He has not had episodes of behavioral dyscontrol and the last 24 hours. Yesterday, he became loud, agitated and threatened the security researcher but settled after receiving oral Ativan, Haldol and Benadryl. We discuss one-to-one during team meeting and consensus was to continue for another 24 hours. Mental status exam: He reacted to this conversation surprisingly well. His affect was bright and he is pleasant and cordial throughout the interview. He asked appropriate questions. He did not become increasingly angry, hostile demanding or threatening. He was not suspicious, paranoid and guarded. Assessment: He is less aggressive and threatening and is less paranoid and suspicious. Plan: Continue one-to-one with security researcher. Continue with involuntary hospitalization. Continue Abilify 20 mg daily with plan to transition to Abilify [facility]. Continue Tegretol 200 mg twice a day and titrated to 400 mg twice a day. Haldol 5 mg, Ativan 2 mg and Benadryl 50 mg IM/PO every 6 hours when necessary for agitation or aggression. Geodon 20 mg IM twice a day when necessary for agitation acute psychosis, Ativan 1 mg by mouth 3 times a day for agitation.
[2019-10-31] MEDS: LORazepam 1 MG TAB PO PRN (15:49)
[2019-10-31] MEDS: hydrOXYzine PAMOATE 25 MG CAP PO PRN (15:49)
[2019-10-31] MEDS: ATENOLOL 25 MG TAB PO SCH (20:54)
[2019-11-01] MEDS: HALOPERIDOL 5 MG TAB PO PRN (00:52)
[2019-11-01] MEDS: LORazepam 1 MG TAB PO PRN ×2 (00:52→16:45)
[2019-11-01] MEDS: carBAMazepine 200 MG TAB PO SCH ×2 (07:54→20:33)
[2019-11-01] MEDS: NICOTINE 14MG/24HR PATCH TRANSDERM SCH ×2 (07:54→13:01)
[2019-11-01] MEDS: ACETAMINOPHEN TAB 325 MG TAB PO PRN (13:01)
--- NOTE | 2019-11-01 13:05 | P.PN ---
Progress Note - Text Progress Note Date: 11/01/19 Clinical Problems: Bipolar disorder current episode manic with psychotic features, rule out schizoaffective disorder, learning disability, childhood onset conduct disorder Interim history: I reviewed the medical record, interviewed the patient and discuss his treatment and treatment plan during team meeting. He remains on one-to-one with security due to his history of aggressive behavior and threats of violence. I interviewed him in the library with the plant security guard present. His only concern was discharge and denied other problems or concerns. He has compliant with medication and has not had an episode of dyscontrol over the last 48 hours. However, yesterday afternoon he was irritable intrusive and restless during activity group. The therapists noted she had to redirect him for using profanity. He awoke at one this morning and was restless and complaining anxiety. He requested received 2 mg of Ativan and 5 mg of Haldol by mouth. He returned to bed but only slept 5 hours. We discussed the one-to-one during team meeting and staff did not feel comfortable discontinue the one-to-one at this time. Mental status exam: He presented as a casually groomed young male who was pleasant on approach. He maintained eye contact and attended to interview. He was not restless, irritable or agitated. His speech was spontaneous and consistent with his mood. His mood was guarded but upbeat but he became more distressed when we could not provide him with a firm discharge date. However he did not dyscontrol or become violent. He denied suicidal ideation or wishes he denied homicidal ideation. He made about discharge. Did not express ideas reference, paranoid ideation or delusions. He denied hallucinations did not appear to be responding to internal stimuli. Assessment: He continues had periods of irritability but overall he is shown greater control over his aggressiveness. Plan: Continue one-to-one with plant security guard. Continue with involuntary hospitalization. Continue Abilify 20 mg daily with plan to transition to Abilify [facility]. Continue Tegretol 400 mg twice a day. Haldol 5 mg, Ativan 2 mg and Benadryl 50 mg IM/PO every 6 hours when necessary for agitation or aggression. Geodon 20 mg IM twice a day when necessary for agitation acute psychosis, Ativan 1 mg by mouth 3 times a day for agitation.
[2019-11-01] MEDS: hydrOXYzine PAMOATE 25 MG CAP PO PRN (16:45)
[2019-11-01] MEDS: ATENOLOL 25 MG TAB PO SCH (20:33)
[2019-11-02] MEDS: NICOTINE 14MG/24HR PATCH TRANSDERM SCH (09:22)
[2019-11-02] MEDS: carBAMazepine 200 MG TAB PO SCH ×2 (09:24→22:05)
[2019-11-02] MEDS: LORazepam 1 MG TAB PO PRN ×2 (09:25→17:28)
[2019-11-02] MEDS: HALOPERIDOL 5 MG TAB PO PRN ×2 (09:25→17:28)
--- NOTE | 2019-11-02 11:24 | P.PN ---
Progress Note - Text Progress Note Date: 11/02/19 Clinical Problems: Bipolar disorder current episode manic with psychotic features, rule out schizoaffective disorder, learning disability, childhood onset conduct disorder Interim history: I reviewed the medical record, interviewed the patient and discuss his treatment and treatment plan during team meeting. He remains on one-to-one with security due to his history of aggressive behavior and threats of violence. I interviewed him in the library with the airport security screener present. His only concern was discharge and denied other problems or concerns. He want us to discontinue one-to-one alleging that he is able to control his temper. I reminded him that the therapist, Saida, asked him to leave group this morning because he lost his temper during a card game. He denied that incident occurred but did not accused the therapist lying. He became increasingly angry during the interview eventually stating that "I am about to lose my temper" and abruptly left the interview room. I informed them therapy starting regular dosing of Haldol. Mental status exam: He presented as a casually groomed young male who was pleasant on approach. He maintained eye contact and attended to interview. He was not restless, irritable or agitated. His speech was spontaneous and consistent with his mood. His mood was guarded but upbeat but he became more distressed when we could not provide him with a firm discharge date. However he did not dyscontrol or become violent. He denied suicidal ideation or wishes he denied homicidal ideation. He made about discharge. Did not express ideas reference, paranoid ideation or delusions. He denied hallucinations did not appear to be responding to internal stimuli. Assessment: He continues had periods of irritability but overall he is shown greater control over his aggressiveness. Plan: Continue one-to-one with managed security sales consultant. Continue with involuntary hospitalization. Change the Abilify dosing to 20 mg at bedtime and begin Haldol 5 mg by mouth twice a day. Continue Tegretol 400 mg twice a day. Haldol 5 mg, Ativan 2 mg and Benadryl 50 mg IM/PO every 6 hours when necessary for agitation or aggression. Geodon 20 mg IM twice a day when necessary for agitation acute psychosis, Ativan 1 mg by mouth 3 times a day for agitation.
[2019-11-02] MEDS: diphenhydrAMINE 50 MG CAP PO PRN ×2 (11:36→17:28)
[2019-11-02 11:53] VITALS: BMI 29.3
[2019-11-02] MEDS: ACETAMINOPHEN TAB 325 MG TAB PO PRN (17:43)
[2019-11-02] MEDS: LORATADINE 10 MG TAB PO PRN (18:37)
[2019-11-02] MEDS: ATENOLOL 25 MG TAB PO SCH (22:04)
[2019-11-02] MEDS: HALOPERIDOL 5 MG TAB PO SCH (22:05)
[2019-11-03] MEDS: NICOTINE 14MG/24HR PATCH TRANSDERM SCH (08:54)
[2019-11-03] MEDS: LORazepam 1 MG TAB PO PRN ×2 (08:55→23:48)
[2019-11-03] MEDS: carBAMazepine 200 MG TAB PO SCH ×2 (08:55→20:32)
[2019-11-03] MEDS: HALOPERIDOL 5 MG TAB PO SCH ×2 (08:55→20:31)
--- NOTE | 2019-11-03 13:31 | P.PN ---
Progress Note - Text Progress Note Date: 11/03/19 Interval history: Patient seen in [facility] today. He is seen with one-to-one security staff present. Patient reports he slept about 8 hours last night. He seems to be eating well. He does not verbalize any adverse psychotropic medication side effects and reports that he is system and taking his medication. Mental status exam: He is alert and cooperative. He does smile at times. He reports that his mood is happy. He denies any current auditory or visual hallucinations, relays that he can read people's "auras." He has not verbalize any thoughts of harm to self or others. He does not display any agitation. Plan: Patient will be maintained on current psychotropic medication regimen. Continue to monitor for any medication side effects and monitor his ongoing response to treatment.
[2019-11-03] MEDS: ATENOLOL 25 MG TAB PO SCH (20:31)
[2019-11-03] MEDS: ACETAMINOPHEN TAB 325 MG TAB PO PRN (20:34)
--- NOTE | 2019-11-03 23:23 | XR ---
EXAMINATION TYPE: XR hand complete RT DATE OF EXAM: 11/03/2019 COMPARISON: NONE HISTORY: Pain and swelling. Punched a wall. TECHNIQUE: 3 views FINDINGS: Metacarpals are intact. I see no fracture nor dislocation. There is some soft tissue swelli ng at the fifth MP joint. IMPRESSION: No fracture seen. Mild soft tissue swelling.
[2019-11-04 08:22] LABS: Basophils # (A) 0.1 k/uL (0-0.2); Basophils % (A) 1 %; Eosinophils # (A) 0.1 k/uL (0-0.7); Eosinophils % (A) 1 %; HCT 45.5 % (39.0-53.0); HGB 14.4 gm/dL (13.0-17.5); Lymphocytes # (A) 1.7 k/uL (1.0-4.8); Lymphocytes % (A) 19 %; MCH 30.4 pg (25.0-35.0); MCHC 31.7 g/dL (31.0-37.0); MCV 95.8 fL (80.0-100.0); Mean Platelet Volume 7.6; Monocytes # (A) 0.7 k/uL (0-1.0); Monocytes % (A) 8 %; Neutrophils # (A) 6.4 k/uL (1.3-7.7); Neutrophils % (A) 70 %; Platelet Count 245 k/uL (150-450); RBC 4.75 m/uL (4.30-5.90); RDW 12.5 % (11.5-15.5); WBC 9.2 k/uL (3.8-10.6)
[2019-11-04] MEDS: carBAMazepine 200 MG TAB PO SCH ×2 (08:47→20:13)
[2019-11-04] MEDS: NICOTINE 14MG/24HR PATCH TRANSDERM SCH (08:47)
[2019-11-04] MEDS: LORazepam 1 MG TAB PO PRN ×2 (08:48→14:09)
[2019-11-04] MEDS: HALOPERIDOL 5 MG TAB PO SCH ×2 (08:48→20:13)
[2019-11-04] MEDS: ACETAMINOPHEN TAB 325 MG TAB PO PRN (08:51)
--- NOTE | 2019-11-04 11:38 | P.PN ---
Progress Note - Text Progress Note Date: 11/04/19 Interval history: Patient seen in [facility] again today. He had an incident last night where he was feeling frustrated by appears behavior and he punched the table. X-ray was done of his hand which did not show any fracture. He does not complain of any hand pain today. He states that he has been able to shrug off this incident. He does not seem to verbalize any adverse psychotropic medication side effects. Mental status exam: He was found in his room lying in bed he did awaken with repeated name-calling. He is cooperative with the interview. He does not display any agitation. Regarding his mood he does not display any manic symptoms and does not complain of any significant depression. He denies any thoughts of harm to self or others. He does not verbalize any hallucinations. His thought processes are organized. Plan: Patient will be maintained on current psychotropic medication regimen. Continue to monitor regarding his medication side effects and monitor her ongoing response to treatment.
[2019-11-04] MEDS: diphenhydrAMINE 50 MG CAP PO PRN (20:14)
[2019-11-04] MEDS: ATENOLOL 25 MG TAB PO SCH (20:14)
[2019-11-05 06:41] VITALS: BP 164/99; PULSE 65; RESP 16; TEMP 97.7
[2019-11-05] MEDS: NICOTINE 14MG/24HR PATCH TRANSDERM SCH ×2 (07:47→08:41)
[2019-11-05] MEDS: HALOPERIDOL 5 MG TAB PO SCH (07:48)
[2019-11-05] MEDS: carBAMazepine 200 MG TAB PO SCH (07:48)
[2019-11-05] MEDS: LORazepam 1 MG TAB PO PRN (09:11)
[2019-11-05] MEDS: hydrOXYzine PAMOATE 25 MG CAP PO PRN (09:11)
[2019-11-05] MEDS ORDERED: DIVALPROEX 500 MG TABLET.DR PO SCH (11:50)
--- NOTE | 2019-11-05 11:53 | P.PN ---
Progress Note - Text Progress Note Date: 11/05/19 Clinical Problems: Bipolar disorder current episode manic with psychotic features, rule out schizoaffective disorder, learning disability, childhood onset conduct disorder Interim history: I reviewed the medical record, interviewed the patient and discuss his treatment and treatment plan during team meeting. He remains on one-to-one with security due to his history of aggressive behavior and threats of violence. I interviewed him in the library with the security door installer present. When I arrived on the unit he was pleasant and asked about discharge. I explained that he has a probate hearing next week and the only way that we could discharge him if he contacts his traffic law attorney and agrees to a waiver and stipulation. He appeared to understand and agreed to the plan. Within a half hour he was beating on my door and demanding to speak with me. He became increasingly angry, hostile and demanding. He believes that I am holding him here and I am the only person preventing him from returning home. He accused me of lying to him. I repeatedly explained that I have no control over the court process. He demanded that I call his traffic law attorney immediately. When I refused he became markedly agitated where he required several security officers and nurses to administer IM Haldol and Benadryl. Mental status exam: He is angry, agitated and paranoid. Cannabis. Behavior quickly escalated to where he required IM medications. Assessment: He remains markedly paranoid, agitated angry and demanding. Plan: Continue one-to-one with airport security screener. Contact traffic law attorney regarding preferred stipulation. Begin Depakote 500 mg by mouth twice a day and titrated according to clinical response and tolerance. Continue Abilify dosing to 20 mg at bedtime and increase Haldol 10 mg by mouth twice a day. Continue Tegretol 400 mg twice a day. Haldol 5 mg, Ativan 2 mg and Benadryl 50 mg IM/PO every 6 hours when necessary for agitation or aggression. Geodon 20 mg IM twice a day when necessary for agitation acute psychosis, Ativan 1 mg by mouth 3 times a day for agitation.
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
[2019-11-05] MEDS ORDERED: HALOPERIDOL 5 MG TAB PO SCH (21:00)
== END 2019-11-05 15:00 | disposition home or self-care (01) | DRG 885 ==
LOC: EC 14:56 → 3MHU 17:54
PROVIDERS: ADMIT Psychiatry & Neurology Psychiatry; ATTEND Psychiatry & Neurology Psychiatry
DX: F31.2 Bipolar disorder, current episode manic severe with psychotic features (principal); F41.9 Anxiety disorder, unspecified; F81.9 Developmental disorder of scholastic skills, unspecified; F17.200 Nicotine dependence, unspecified, uncomplicated; F90.9 Attention-deficit hyperactivity disorder, unspecified type; F91.1 Conduct disorder, childhood-onset type; Z79.899 Other long term (current) drug therapy; Z56.0 Unemployment, unspecified; Z78.1 Physical restraint status; Z81.8 Family history of other mental and behavioral disorders
CPT/HCPCS: 80053; 80061; 80156; 80306; 81003; 82075; 83036; 84443; 85025; 99285

== ENCOUNTER 2020-02-05 10:29 | Emergency (ER) | payer OTHER ==
[2020-02-05 10:35] VITALS: RESP 18
[2020-02-05] MEDS ORDERED: cefTRIAXone 250 MG VIAL IM STA (10:55)
[2020-02-05] MEDS ORDERED: SODIUM CHLORIDE 0.9% 1,000 ML IV STA (10:57)
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
[2020-02-05 11:11] VITALS: BP 141/60; PULSE 68; TEMP 98.4
== END 2020-02-05 11:08 | disposition home or self-care (01) ==
LOC: EC 10:29
DX: H10.9 Unspecified conjunctivitis (principal); J32.9 Chronic sinusitis, unspecified; F32.9 Major depressive disorder, single episode, unspecified; F17.200 Nicotine dependence, unspecified, uncomplicated; Z79.899 Other long term (current) drug therapy
CPT/HCPCS: 96372; 99283; J0696

== ENCOUNTER 2020-02-06 02:17 | Emergency (ER) | payer OTHER ==
[2020-02-06 02:25] VITALS: BP 153/98; PULSE 65; RESP 18; TEMP 98.7
--- NOTE | 2020-02-06 02:53 | ED ---
Headache HPI - General Chief Complaint: Recheck/Abnormal Lab/Rx Stated Complaint: Head doesn't feel normal Time Seen by Provider: 02/06/20 02:43 Mode of arrival: ambulatory Limitations: no limitations - History of Present Illness MD Complaint: headache Onset/Timin -: hour(s) Onset Description: sudden Location: left, frontal Severity: moderate Quality: pulsatile Consistency: constant Improves With: nothing Worsens With: none Context: occurred during intercourse Associated Symptoms: photophobia Treatments Prior to Arrival: none - Related Data Home Medications Medication Instructions Recorded Confirmed atenoloL [Tenormin] 25 mg PO HS 10/25/19 02/05/20 carBAMazepine [TEGretol] 200 mg PO BID 02/05/20 02/05/20 haloperidoL [Haldol] 5 mg PO HS PRN 02/05/20 02/05/20 Previous Rx's Medication Instructions Recorded ARIPiprazole [Abilify] 20 mg PO HS #20 tab 11/05/19 Doxycycline Monohydrate [Monodox] 100 mg PO BID 7 Days #14 cap 02/05/20 Erythromycin Ophth Oint [Romycin 1 applic BOTH EYES QID #1 bottle 02/05/20 Ophth Oint] Allergies Allergy/AdvReac Type Severity Reaction Status Date / Time No Known Allergies Allergy Verified 02/06/20 02:25 Review of Systems ROS Statement: Those systems with pertinent positive or pertinent negative responses have been documented in the HPI. ROS Other: All systems not noted in ROS Statement are negative. Constitutional: Denies: fever, chills Eyes: Denies: vision change ENT: Denies: ear pain, hearing loss, congestion Respiratory: Denies: cough, dyspnea Cardiovascular: Denies: chest pain, syncope Skin: Denies: rash Neurological: Reports: headache. Denies: weakness, numbness, paresthesias, confusion Past Medical History Past Medical History: No Reported History History of Any Multi-Drug Resistant Organisms: None Reported Past Surgical History: No Surgical Hx Reported Past Psychological History: Depression Smoking Status: Current every day smoker Past Alcohol Use History: None Reported Past Drug Use History: Cocaine, Marijuana, Methamphetamine General Exam Limitations: no limitations General appearance: alert, in no apparent distress Head exam: Present: atraumatic, normocephalic Eye exam: Present: PERRL, EOMI, conjunctival injection, periorbital swelling. Absent: scleral icterus, nystagmus, periorbital tenderness ENT exam: Present: normal oropharynx, mucous membranes moist Neck exam: Present: normal inspection, full ROM. Absent: meningismus, lymphadenopathy Neurological exam: Present: alert, oriented X3, CN II-XII intact, normal gait. Absent: motor sensory deficit Skin exam: Present: warm, dry, intact, normal color. Absent: rash Course Vital Signs 02/06/20 02:21 Temperature 98.7 F Pulse Rate 65 Respiratory 18 Rate Blood Pressure 153/98 O2 Sat by Pulse 97 Oximetry Disposition Clinical Impression: Headache Disposition: HOME SELF-CARE Condition: Good Instructions (If sedation given, give patient instructions): Acute Headache (ED) Is patient prescribed a controlled substance at d/c from ED?: No Referrals: Watson Villalobos MD [Primary Care Provider] - 1-2 days
--- NOTE | 2020-02-06 03:10 | CT ---
EXAMINATION TYPE: CT brain wo con DATE OF EXAM: 02/06/2020 COMPARISON: None HISTORY: Headache CT DLP: 1266.40 mGycm Automated exposure control for dose reduction was used. Ventricles have normal size. There is no mass effect nor midline shift. There is no sign of intracran ial hemorrhage. There is no evidence of cerebral edema. Skull base is intact. Temporal bones appear n ormal. There is normal aeration of the mastoid sinuses. Sella turcica appears normal. IMPRESSION: Normal unenhanced head CT scan.
== END 2020-02-06 03:39 | disposition home or self-care (01) ==
LOC: EC 02:17
DX: R51 Headache (principal); F32.9 Major depressive disorder, single episode, unspecified; F17.200 Nicotine dependence, unspecified, uncomplicated; Z79.899 Other long term (current) drug therapy
CPT/HCPCS: 70450; 99284

== ENCOUNTER 2020-04-07 14:08 | Emergency (ER) | payer OTHER ==
[2020-04-07 14:18] VITALS: BP 159/102; PULSE 64; RESP 18; TEMP 98
--- NOTE | 2020-04-07 14:43 | ED ---
Recheck HPI - General Chief Complaint: Recheck/Abnormal Lab/Rx Stated Complaint: Abd Pain, STD Check Time Seen by Provider: 04/07/20 14:20 Source: patient Mode of arrival: ambulatory Limitations: no limitations - History of Present Illness Initial Comments: Patient is a 24-year-old male presenting to the emergency Department with complaints of "abdominal cramping." He states this been going on for the past couple weeks. There is no specific area of pain, no vomiting, no diarrhea. Patient states he just woke up and he felt a little cramping and also wanted to be checked for STDs so he came to the emergency department. He states he does have a PCP. He's had no fevers, no chest pain, no shortness of breath. He is in no acute distress. He has no urinary complaints, no penile discharge. He has been eating and drinking as normal, he had normal bowel movement yesterday. She has no stiff Past medical history, takes no medications. Patient has no other complaints at this time. Upon arrival to the ER, his vital signs are stable. - Related Data Home Medications Medication Instructions Recorded Confirmed atenoloL [Tenormin] 25 mg PO HS 10/25/19 02/05/20 carBAMazepine [TEGretol] 200 mg PO BID 02/05/20 02/05/20 haloperidoL [Haldol] 5 mg PO HS PRN 02/05/20 02/05/20 Previous Rx's Medication Instructions Recorded ARIPiprazole [Abilify] 20 mg PO HS #20 tab 11/05/19 Doxycycline Monohydrate [Monodox] 100 mg PO BID 7 Days #14 cap 02/05/20 Erythromycin Ophth Oint [Romycin 1 applic BOTH EYES QID #1 bottle 02/05/20 Ophth Oint] Allergies Allergy/AdvReac Type Severity Reaction Status Date / Time No Known Allergies Allergy Verified 04/07/20 14:13 Review of Systems ROS Statement: Those systems with pertinent positive or pertinent negative responses have been documented in the HPI. ROS Other: All systems not noted in ROS Statement are negative. Past Medical History Past Medical History: No Reported History Additional Past Medical History / Comment(s): abnormal heart beat History of Any Multi-Drug Resistant Organisms: None Reported Past Surgical History: No Surgical Hx Reported Past Psychological History: Depression, Schizophrenia Smoking Status: Current every day smoker Past Alcohol Use History: None Reported Past Drug Use History: Cocaine, Marijuana, Methamphetamine General Exam - General Exam Comments Initial Comments: GENERAL: Patient is well-developed and well-nourished. Patient is nontoxic and in no acute distress. HEAD: Atraumatic, normocephalic. EYES: Pupils equal round and reactive to light, extraocular movements intact, sclera anicteric, conjunctiva are normal. Eyelids were unremarkable. ENT: TMs normal, nares patent, oropharynx clear without exudates. Moist mucous membranes. NECK: Normal range of motion, supple without lymphadenopathy or JVD. LUNGS: Unlabored respirations. Breath sounds clear to auscultation bilaterally and equal. No wheezes rales or rhonchi. HEART: Regular rate and rhythm without murmurs, rubs or gallops. ABDOMEN: Soft, nontender, normoactive bowel sounds. No guarding, no rebound. No masses appreciated. : Deferred MUSCULOSKELETAL: Normal extremities with adequate strength and normal range of motion, no pitting or edema. No clubbing or cyanosis. NEUROLOGICAL: Patient is alert and oriented x 3. Motor and sensory are also intact. Cranial nerves II through XII grossly intact. Symmetrical smile. Normal speech, normal gait. PSYCH: Normal mood, normal affect. SKIN: Warm, Dry, normal turgor, no rashes or lesions noted. Limitations: no limitations Course Vital Signs 04/07/20 14:13 Temperature 98 F Pulse Rate 64 Respiratory 18 Rate Blood Pressure 159/102 O2 Sat by Pulse 100 Oximetry Medical Decision Making - Medical Decision Making Patient is a 24-year-old male here for abdominal cramping and also requesting STD check. He has no specific complaint, he states he just woke up and felt cramping. He does have a PCP that he sees. His vital signs are stable. His exam reveals no specific findings. His appetite has been normal he's had no fevers, no vomiting or diarrhea. He's had regular bowel movements. His urine shows no evidence of infection, gonorrhea and chlamydia are pending. I discussed these findings with the patient. Patient is stable for discharge. Return parameters were discussed with the patient he verbalizes understanding. Patient will follow up with his PCP. - Lab Data Lab Results 04/07/20 Range/Units 14:41 Urine Color Light Yellow Urine Appearance Clear (Clear) Urine pH 7.5 (5.0-8.0) Ur Specific [place] 1.010 (1.001-1.035) Urine Protein Negative (Negative) Urine Glucose (UA) Negative (Negative) Urine Ketones Negative (Negative) Urine Blood Negative (Negative) Urine Nitrite Negative (Negative) Urine Bilirubin Negative (Negative) Urine Urobilinogen <2.0 (<2.0) mg/dL Ur Leukocyte Esterase Negative (Negative) Disposition Clinical Impression: Concern about STD in male without diagnosis, Abdominal cramping Disposition: HOME SELF-CARE Condition: Stable Instructions (If sedation given, give patient instructions): Normal Exam (ED) Additional Instructions: Please return to the Emergency Department if symptoms worsen or any other concerns. Exam today is normal, STD results are pending Follow-up with your regular physician for routine check-ups. Is patient prescribed a controlled substance at d/c from ED?: No Referrals: Watson Villalobos MD [Primary Care Provider] - 1-2 days
[2020-04-07 14:56] LABS: Appearance,Urine Clear (Clear); Bilirubin,Urine Negative (Negative); Blood,Urine Negative (Negative); Color,Urine Light Yellow; Glucose,Urine (UA) Negative (Negative); Ketones,Urine Negative (Negative); Leukocyte Esterase,Urine Negative (Negative); Nitrite,Urine Negative (Negative); PH, Urine 7.5 (5.0-8.0); Protein,Urine Negative (Negative); Urobilinogen,Urine <2.0 mg/dL (<2.0)
== END 2020-04-07 15:15 | disposition home or self-care (01) ==
LOC: EC 14:08
DX: R10.9 Unspecified abdominal pain (principal); F17.200 Nicotine dependence, unspecified, uncomplicated; Z79.899 Other long term (current) drug therapy; Z71.1 Person with feared health complaint in whom no diagnosis is made
CPT/HCPCS: 81003; 87491; 87591; 87661; 99283

== ENCOUNTER 2020-04-16 15:02 | Emergency (ER) | payer OTHER ==
[2020-04-16 15:07] VITALS: BP 144/84; PULSE 63; RESP 20; TEMP 98.2
--- NOTE | 2020-04-16 15:35 | ED ---
Recheck HPI - General Chief Complaint: Recheck/Abnormal Lab/Rx Stated Complaint: COVID test Time Seen by Provider: 04/16/20 15:11 Source: patient Mode of arrival: ambulatory Limitations: no limitations - History of Present Illness Initial Comments: 24-year-old male presenting to the emergency department with a chief complaint of needing Covid testing. Patient states he has been having a headache and a sore throat for the past several days but no coughing, chest pain, shortness of breath, fevers, chills, nausea, vomiting or diarrhea. States that his work required him to obtain a covid-19od test before he can return. He denies taking medication to alleviate the symptoms. States the headache is mild and intermittent in nature. States this was a gradual onset. States the sore throat was also gradual onset and denies any drooling. - Related Data Home Medications Medication Instructions Recorded Confirmed atenoloL [Tenormin] 25 mg PO HS 10/25/19 02/05/20 carBAMazepine [TEGretol] 200 mg PO BID 02/05/20 02/05/20 haloperidoL [Haldol] 5 mg PO HS PRN 02/05/20 02/05/20 Previous Rx's Medication Instructions Recorded ARIPiprazole [Abilify] 20 mg PO HS #20 tab 11/05/19 Doxycycline Monohydrate [Monodox] 100 mg PO BID 7 Days #14 cap 02/05/20 Erythromycin Ophth Oint [Romycin 1 applic BOTH EYES QID #1 bottle 02/05/20 Ophth Oint] Allergies Allergy/AdvReac Type Severity Reaction Status Date / Time No Known Allergies Allergy Verified 04/16/20 15:07 Review of Systems ROS Statement: Those systems with pertinent positive or pertinent negative responses have been documented in the HPI. ROS Other: All systems not noted in ROS Statement are negative. Past Medical History Past Medical History: No Reported History Additional Past Medical History / Comment(s): abnormal heart beat History of Any Multi-Drug Resistant Organisms: None Reported Past Surgical History: No Surgical Hx Reported Past Psychological History: Depression, Schizophrenia Smoking Status: Current every day smoker Past Alcohol Use History: None Reported Past Drug Use History: Cocaine, Marijuana, Methamphetamine General Exam Limitations: no limitations General appearance: alert, in no apparent distress Head exam: Present: atraumatic, normocephalic, normal inspection Eye exam: Present: normal appearance, PERRL, EOMI Pupils: Present: normal accommodation ENT exam: Present: normal exam, normal oropharynx (ENT examination unremarkable), mucous membranes moist, TM's normal bilaterally, normal external ear exam Neck exam: Present: normal inspection, full ROM. Absent: tenderness Respiratory exam: Present: normal lung sounds bilaterally. Absent: respiratory distress, wheezes, rales Cardiovascular Exam: Present: regular rate, normal rhythm, normal heart sounds. Absent: systolic murmur, diastolic murmur Extremities exam: Present: normal inspection, full ROM, normal capillary refill. Absent: tenderness, pedal edema, joint swelling Back exam: Present: normal inspection, full ROM. Absent: tenderness, CVA tenderness (R), CVA tenderness (L) Neurological exam: Present: alert, oriented X3, normal gait Psychiatric exam: Present: normal affect, normal mood. Absent: depressed Skin exam: Present: warm, dry, intact, normal color Course Vital Signs 04/16/20 15:05 Temperature 98.2 F Pulse Rate 63 Respiratory 20 Rate Blood Pressure 144/84 O2 Sat by Pulse 97 Oximetry Medical Decision Making - Medical Decision Making 24-year-old male presenting to the emergency department with a chief complaint of covid-19 testing. Physical examination unremarkable. PCR Covid test obtained. Patient was advised to self isolate until he receives the results of the testing. He was advised to take Tylenol only. Develops a fever. Strict return parameters were thoroughly discussed the patient is understanding and agreeable. Case discussed with physician. Disposition Clinical Impression: Sore throat Disposition: HOME SELF-CARE Condition: Stable Instructions (If sedation given, give patient instructions): Acute Diarrhea (ED) Additional Instructions: self isolate until he received the results of Covid testing. Follow with the primary care physician. Take Tylenol if he developed fever. Return to emergency department if symptoms worsen. Is patient prescribed a controlled substance at d/c from ED?: No Referrals: Watson Villalobos MD [Primary Care Provider] - 1-2 days Time of Disposition: 15:33
== END 2020-04-16 16:13 | disposition home or self-care (01) ==
LOC: EC 15:02
DX: J02.9 Acute pharyngitis, unspecified (principal); F32.9 Major depressive disorder, single episode, unspecified; F20.9 Schizophrenia, unspecified; Z79.899 Other long term (current) drug therapy; F17.200 Nicotine dependence, unspecified, uncomplicated; Z02.1 Encounter for pre-employment examination; Z20.828 Contact with and (suspected) exposure to other viral communicable diseases
CPT/HCPCS: 99284; U0003

== ENCOUNTER 2020-04-26 18:10 | Emergency (ER) | payer OTHER ==
[2020-04-26 18:15] VITALS: BP 148/90; PULSE 95; RESP 18; TEMP 97.9
--- NOTE | 2020-04-26 18:43 | ED ---
General Adult HPI - General Chief complaint: Recheck/Abnormal Lab/Rx Stated complaint: Abd pain,nausea Time Seen by Provider: 04/26/20 18:21 Source: patient, RN notes reviewed, old records reviewed Mode of arrival: ambulatory Limitations: no limitations - History of Present Illness Initial comments: 24-year-old male presenting with suspected illicit drug ingestion. Patient states that he had smoked a marijuana blunt that he believes may been laced with some additional drug. He's felt somewhat lightheaded had a mild headache after ingestion. He denies alcohol abuse or illicit drug intentional use with the exception of marijuana. Denies central chest pain. Denies focal numbness or weakness. - Related Data Home Medications Medication Instructions Recorded Confirmed atenoloL [Tenormin] 25 mg PO HS 10/25/19 02/05/20 carBAMazepine [TEGretol] 200 mg PO BID 02/05/20 02/05/20 haloperidoL [Haldol] 5 mg PO HS PRN 02/05/20 02/05/20 Previous Rx's Medication Instructions Recorded ARIPiprazole [Abilify] 20 mg PO HS #20 tab 11/05/19 Doxycycline Monohydrate [Monodox] 100 mg PO BID 7 Days #14 cap 02/05/20 Erythromycin Ophth Oint [Romycin 1 applic BOTH EYES QID #1 bottle 02/05/20 Ophth Oint] Allergies Allergy/AdvReac Type Severity Reaction Status Date / Time No Known Allergies Allergy Verified 04/26/20 18:15 Review of Systems ROS Statement: Those systems with pertinent positive or pertinent negative responses have been documented in the HPI. ROS Other: All systems not noted in ROS Statement are negative. Past Medical History Past Medical History: No Reported History Additional Past Medical History / Comment(s): abnormal heart beat History of Any Multi-Drug Resistant Organisms: None Reported Past Surgical History: No Surgical Hx Reported Past Psychological History: Depression, Schizophrenia Smoking Status: Current every day smoker Past Alcohol Use History: None Reported Past Drug Use History: Cocaine, Marijuana, Methamphetamine General Exam Limitations: no limitations General appearance: alert, in no apparent distress Head exam: Present: atraumatic, normocephalic Eye exam: Present: normal appearance, PERRL Neck exam: Present: normal inspection. Absent: tenderness, meningismus Respiratory exam: Present: normal lung sounds bilaterally. Absent: respiratory distress, wheezes Cardiovascular Exam: Present: regular rate, normal rhythm GI/Abdominal exam: Present: soft. Absent: distended, tenderness, guarding, rebound Extremities exam: Present: normal inspection, normal capillary refill. Absent: pedal edema Neurological exam: Present: alert, oriented X3, CN II-XII intact. Absent: motor sensory deficit Psychiatric exam: Present: normal affect, normal mood. Absent: homicidal ideation, suicidal ideation Skin exam: Present: warm, dry, intact. Absent: cyanosis, diaphoretic Course Vital Signs 04/26/20 18:12 Temperature 97.9 F Pulse Rate 95 Respiratory 18 Rate Blood Pressure 148/90 O2 Sat by Pulse 100 Oximetry Medical Decision Making - Medical Decision Making 24-year-old with suspected drug ingestion. Urine drug screen is positive for amphetamines, methamphetamine, and marijuana. His alcohol level is 0. - Lab Data Lab Results 04/26/20 Range/Units 18:40 Urine Opiates Screen Not Detected (NotDetected) Ur Oxycodone Screen Not Detected (NotDetected) Urine Methadone Screen Not Detected (NotDetected) Ur Propoxyphene Screen Not Detected (NotDetected) Ur Barbiturates Screen Not Detected (NotDetected) U Tricyclic Antidepress Not Detected (NotDetected) Ur Phencyclidine Scrn Not Detected (NotDetected) Ur Amphetamines Screen Detected H (NotDetected) U Methamphetamines Scrn Detected H (NotDetected) U Benzodiazepines Scrn Not Detected (NotDetected) Urine Cocaine Screen Not Detected (NotDetected) U Marijuana (THC) Screen Detected H (NotDetected) Disposition Clinical Impression: Methamphetamine use Disposition: HOME SELF-CARE Condition: Fair Instructions (If sedation given, give patient instructions): Methamphetamine Abuse (ED) Is patient prescribed a controlled substance at d/c from ED?: No Referrals: Watson Villalobos MD [Primary Care Provider] - 1-2 days Time of Disposition: 19:28
[2020-04-26 19:18] LABS: Amphetamine Screen,Urine Detected (NotDetected); Barbiturate Screen,Urine Not Detected (NotDetected); Benzodiazepines Screen,Urine Not Detected (NotDetected); Cocaine Screen,Urine Not Detected (NotDetected); Methadone Screen, Urine Not Detected (NotDetected); Opiate Screen,Urine Not Detected (NotDetected); Oxycodone Screen, Urine Not Detected (NotDetected); Phencyclidine Screen,Urine Not Detected (NotDetected); Tricyclic Antidepressant,Urine Not Detected (NotDetected); Urn Cannabinoid Scrn Detected (NotDetected)
== END 2020-04-26 19:34 | disposition home or self-care (01) ==
LOC: EC 18:10
DX: F15.90 Other stimulant use, unspecified, uncomplicated (principal); F17.200 Nicotine dependence, unspecified, uncomplicated; F32.9 Major depressive disorder, single episode, unspecified; F20.9 Schizophrenia, unspecified; R42 Dizziness and giddiness; R51.9 Headache, unspecified; F12.90 Cannabis use, unspecified, uncomplicated; Z79.899 Other long term (current) drug therapy
CPT/HCPCS: 80306; 82075; 99284

== ENCOUNTER 2020-09-20 15:46 | Inpatient (IN) | payer MEDICAID, OTHER ==
[2020-09-20] MEDS ORDERED: LORazepam 2 MG/ML INJ IM STA (18:02)
[2020-09-20] MEDS ORDERED: HALOPERIDOL LACTATE 5 MG/ML 1 ML VIAL IM STA (18:02)
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
[2020-09-21 01:29] LABS: Basophils # (A) 0.1 k/uL (0-0.2); Basophils % (A) 1 %; Eosinophils # (A) 0.2 k/uL (0-0.7); Eosinophils % (A) 2 %; HGB 13.7 gm/dL (13.0-17.5); Lymphocytes # (A) 2.3 k/uL (1.0-4.8); Lymphocytes % (A) 28 %; MCH 32.5 pg (25.0-35.0); MCHC 35.2 g/dL (31.0-37.0); MCV 92.4 fL (80.0-100.0); Mean Platelet Volume 7.6; Monocytes # (A) 0.5 k/uL (0-1.0); Monocytes % (A) 6 %; Neutrophils % (A) 61 %; Platelet Count 209 k/uL (150-450); RBC 4.23 m/uL (4.30-5.90); RDW 12.9 % (11.5-15.5); WBC 8.3 k/uL (3.8-10.6)
[2020-09-21 01:36] LABS: ALT 18 U/L (4-49); AST 29 U/L (17-59); African American GFR (CKD) >90 (>60 ml/min/1.73 sqM); Albumin 3.8 g/dL (3.5-5.0); Alkaline Phosphatase 55 U/L (38-126); Anion Gap 5 mmol/L; Blood Urea Nitrogen 13 mg/dL (9-20); Calcium 9.4 mg/dL (8.4-10.2); Carbon Dioxide 29 mmol/L (22-30); Chloride 107 mmol/L (98-107); Glucose 88 mg/dL (74-99); Non-African American GFR(CKD) >90 (>60 ml/min/1.73 sqM); Potassium 4.1 mmol/L (3.5-5.1); Sodium 141 mmol/L (137-145); Total Bilirubin 0.2 mg/dL (0.2-1.3); Total Protein 6.3 g/dL (6.3-8.2)
[2020-09-21] MEDS ORDERED: LORazepam 1 MG TAB PO PRN (14:46)
[2020-09-21] MEDS ORDERED: MAG HYDROX/AL HYDROX/SIMETH 30 ML CUP PO PRN (14:46)
[2020-09-21] MEDS ORDERED: MAGNESIUM HYDROXIDE 2,400 MG/10 ML CUP PO PRN (14:46)
[2020-09-21] MEDS ORDERED: ACETAMINOPHEN TAB 325 MG TAB PO PRN (14:46)
[2020-09-21] MEDS ORDERED: BENZTROPINE MESYLATE 1 MG TAB PO PRN (14:49)
[2020-09-21] MEDS ORDERED: HALOPERIDOL LACTATE 5 MG/ML 1 ML VIAL IM PRN (14:52)
[2020-09-21] MEDS ORDERED: haloperidoL 5 MG TAB PO PRN (14:53)
--- NOTE | 2020-09-21 21:31 | P.CONS ---
History of Present Illness - Reason for Consult Consult date: 09/21/20 - History of Present Illness Patient is a 34-year-old male with a PMH of tobacco abuse, marijuana abuse, hypertension, and bipolar disorder who was brought into the emergency room due to medication noncompliance. The patient was reported by his mother to be having auditory and visual hallucinations and that he had not been taking his medications as prescribed. The patient was a the mental health unit where he was seen and evaluated. He reported that he does not take his medication since "they don't do anything". She reported smoking one pack of cigarettes daily along with marijuana use several times a week. He denied any additional complaints. Denied chest pain, shortness of breath, fever, chills, nausea, vo miting, abdominal pain, diarrhea, dizziness. Laboratory evaluation was reviewed and was unremarkable. Review of Systems Pertinent positives and negatives as discussed in HPI, a complete review of systems was performed and all other systems are negative. Past Medical History Past Medical History: Hypertension Additional Past Medical History / Comment(s): abnormal heart beat, autistic History of Any Multi-Drug Resistant Organisms: None Reported Past Surgical History: No Surgical Hx Reported Past Psychological History: ADD/ADHD, Bipolar, Depression, Schizophrenia Smoking Status: Current every day smoker Past Alcohol Use History: None Reported Past Drug Use History: Cocaine, Marijuana, Methamphetamine Medications and Allergies Home Medications Medication Instructions Recorded Confirmed Type atenoloL [Tenormin] 25 mg PO HS 10/25/19 09/21/20 History ARIPiprazole [Abilify] 20 mg PO HS #20 tab 11/05/19 09/21/20 Rx carBAMazepine [TEGretol] 200 mg PO BID 02/05/20 09/21/20 History haloperidoL [Haldol] 5 mg PO HS PRN 02/05/20 09/21/20 History Allergies Allergy/AdvReac Type Severity Reaction Status Date / Time No Known Allergies Allergy Verified 09/20/20 15:54 Physical Exam Vitals: Vital Signs Temp Pulse Pulse Resp BP BP Pulse Ox 09/21/20 15:12 97.7 F 61 14 119/79 98 09/21/20 14:55 97.9 F 78 16 128/78 98 09/21/20 07:15 98.1 F 79 16 130/78 99 09/21/20 03:00 68 18 126/72 95 General: non toxic, no distress, appears at stated age, normal weight Derm: no unusual rashes/lesions no unusual ecchymoses, warm, dry Head: atraumatic, normocephalic, symmetric Eyes: EOMI, no lid lag, anicteric sclera, pupils equal round reactive to light ENT: Nose and ears atraumatic, no thrush, no pharyngeal erythema Neck: No thyromegaly, no cervical lymphadenopathy, trachea midline, supple Mouth: no lip lesion, mucus membranes moist Cardiovascular: S1S2 reg, no murmur, positive posterior tibial pulse bilateral, no edema, capillary refill less than 2 seconds Lungs: CTA bilateral, no rhonchi, no rales , no accessory muscle use Abdominal: soft, nontender to palpation, no guarding, no appreciable organomegaly, normal bowel sounds Ext: no gross muscle atrophy, muscle strength 5 out of 5 in all 4 extremities grossly, no contractures, Neuro: CN II-XI grossly intact, light touch intact all 4 extremities, finger to nose within normal limits, Psych: Alert, oriented, appropriate affect Results CBC & Chem 7: 09/21/20 01:16 09/21/20 01:16 Labs: Abnormal Lab Results - Last 24 Hours (Table) 09/21/20 Range/Units 01:16 RBC 4.23 L (4.30-5.90) m/uL Assessment and Plan Plan: Tobacco and marijuana abuse -Advised on the importance of cessation -Nicotine patch when necessary HTN -Continue with home medications atenolol Psychosis -As per psychiatry Thank you for allowing us to participate in the care of this patient. We will follow peripherally. Do not hesitate to contact us with questions. Someone can be reached from the [facility] hospitalist group at all hours of the day at [phone].
[2020-09-22 07:27] LABS: Basophils # (A) 0.1 k/uL (0-0.2); Basophils % (A) 1 %; Eosinophils # (A) 0.2 k/uL (0-0.7); Eosinophils % (A) 2 %; HCT 42.2 % (39.0-53.0); HGB 14.2 gm/dL (13.0-17.5); Lymphocytes # (A) 2.5 k/uL (1.0-4.8); Lymphocytes % (A) 34 %; MCH 31.4 pg (25.0-35.0); MCHC 33.7 g/dL (31.0-37.0); MCV 93.2 fL (80.0-100.0); Mean Platelet Volume 7.9; Monocytes # (A) 0.4 k/uL (0-1.0); Monocytes % (A) 6 %; Neutrophils # (A) 3.9 k/uL (1.3-7.7); Neutrophils % (A) 55 %; Platelet Count 225 k/uL (150-450); RBC 4.53 m/uL (4.30-5.90); RDW 12.9 % (11.5-15.5); WBC 7.2 k/uL (3.8-10.6)
[2020-09-22 07:48] LABS: ALT 19 U/L (4-49); AST 31 U/L (17-59); African American GFR (CKD) >90 (>60 ml/min/1.73 sqM); Albumin 3.9 g/dL (3.5-5.0); Alkaline Phosphatase 65 U/L (38-126); Anion Gap 4 mmol/L; Blood Urea Nitrogen 11 mg/dL (9-20); Calcium 9.4 mg/dL (8.4-10.2); Carbon Dioxide 32 mmol/L (22-30); Chloride 104 mmol/L (98-107); Cholesterol 111 mg/dL (<200); Glucose 88 mg/dL (74-99); HDL Cholesterol 42 mg/dL (40-60); LDL Cholesterol,Calculated 55 mg/dL (0-99); Non-African American GFR(CKD) >90 (>60 ml/min/1.73 sqM); Sodium 140 mmol/L (137-145); Total Bilirubin 0.3 mg/dL (0.2-1.3); Total Protein 6.5 g/dL (6.3-8.2); Triglycerides 70 mg/dL (<150)
[2020-09-22] MEDS ORDERED: LORazepam 2 MG/ML INJ IM PRN (12:11)
[2020-09-22] MEDS ORDERED: LORazepam 1 MG TAB PO PRN (12:11)
--- NOTE | 2020-09-22 12:46 | P.HP ---
Psychiatric H&P - . H&P Date: 09/22/20 History & Physical: Allergies Allergy/AdvReac Type Severity Reaction Status Date / Time No Known Allergies Allergy Verified 09/20/20 15:54 Vital Signs Temp 97.7 F 09/21/20 15:12 Pulse 61 09/21/20 15:12 Resp 14 09/21/20 15:12 BP 119/79 09/21/20 15:12 Pulse Ox 98 09/21/20 15:12 Laboratory Last Values WBC 7.2 k/uL (3.8-10.6) 09/22/20 06:16 RBC 4.53 m/uL (4.30-5.90) 09/22/20 06:16 Hgb 14.2 gm/dL (13.0-17.5) 09/22/20 06:16 Hct 42.2 % (39.0-53.0) 09/22/20 06:16 MCV 93.2 fL (80.0-100.0) 09/22/20 06:16 MCH 31.4 pg (25.0-35.0) 09/22/20 06:16 MCHC 33.7 g/dL (31.0-37.0) 09/22/20 06:16 RDW 12.9 % (11.5-15.5) 09/22/20 06:16 Plt Count 225 k/uL (150-450) 09/22/20 06:16 MPV 7.9 09/22/20 06:16 Neutrophils % 55 % 09/22/20 06:16 Lymphocytes % 34 % 09/22/20 06:16 Monocytes % 6 % 09/22/20 06:16 Eosinophils % 2 % 09/22/20 06:16 Basophils % 1 % 09/22/20 06:16 Neutrophils # 3.9 k/uL (1.3-7.7) 09/22/20 06:16 Lymphocytes # 2.5 k/uL (1.0-4.8) 09/22/20 06:16 Monocytes # 0.4 k/uL (0-1.0) 09/22/20 06:16 Eosinophils # 0.2 k/uL (0-0.7) 09/22/20 06:16 Basophils # 0.1 k/uL (0-0.2) 09/22/20 06:16 Sodium 140 mmol/L (137-145) 09/22/20 06:16 Potassium 4.0 mmol/L (3.5-5.1) 09/22/20 06:16 Chloride 104 mmol/L (98-107) 09/22/20 06:16 Carbon Dioxide 32 mmol/L (22-30) H 09/22/20 06:16 Anion Gap 4 mmol/L 09/22/20 06:16 BUN 11 mg/dL (9-20) 09/22/20 06:16 Creatinine 0.94 mg/dL (0.66-1.25) 09/22/20 06:16 Est GFR (CKD-EPI)AfAm >90 (>60 ml/min/1.73 sqM) 09/22/20 06:16 Est GFR (CKD-EPI)NonAf >90 (>60 ml/min/1.73 sqM) 09/22/20 06:16 Glucose 88 mg/dL (74-99) 09/22/20 06:16 Calcium 9.4 mg/dL (8.4-10.2) 09/22/20 06:16 Total Bilirubin 0.3 mg/dL (0.2-1.3) 09/22/20 06:16 AST 31 U/L (17-59) 09/22/20 06:16 ALT 19 U/L (4-49) 09/22/20 06:16 Alkaline Phosphatase 65 U/L (38-126) 09/22/20 06:16 Total Protein 6.5 g/dL (6.3-8.2) 09/22/20 06:16 Albumin 3.9 g/dL (3.5-5.0) 09/22/20 06:16 Triglycerides 70 mg/dL (<150) 09/22/20 06:16 Cholesterol 111 mg/dL (<200) 09/22/20 06:16 LDL Cholesterol, Calc 55 mg/dL (0-99) 09/22/20 06:16 HDL Cholesterol 42 mg/dL (40-60) 09/22/20 06:16 TSH 1.930 mIU/L (0.465-4.680) 09/22/20 06:16 Coronavirus (PCR) Not Detected (Not Detectd) 09/20/20 18:30 09/22/20 12:36 IDENTIFYING DATA: Patient is a 25-year-old male who is a history of schizophrenia who presented to the hospital on a court pickup order. HPI: Patient presented to the hospital yesterday as he has a history of schizophrenia and apparently has been court ordered for a pickup by the copy chief as his mother had complaints of patient's aggressive behavior at home. According to ER report patient apparently has not been taking his medications and has had an increase in his agitation and auditory and visual hallucinations. Patient was restrained in the ER twice and given prn meds for aggression towards staff. According to the petition filled out by EPS nurse claims that patient has been noncompliant with his treatment and therapy and has no insight as to his need to comply and has a history of paranoid schizophrenia. Patient was seen laying down on a chair in the lounge and was agreeable to speak to service writer briefly in his room. Patient had very little interest in communicating with service writer and was fixated on being discharged and minimizing symptoms. He had very poor insight into his condition and had poor hygiene and grooming. He appeared to be impulsive and fairly upset during the conversation. He also appeared to be restless and unable to sit still and began wandering the hallways. He claims that his mom was being "stupid" and claims that she was upset at him for "talking to myself". He states that "everybody talks themselves" and claims that now his mood is "pissed". He also was endorsing paranoia and states that "people are following me". When asked about his medications patient states that "I'm not taking any of her medications". Patient denies any suicidal or homicidal ideations intent or plan. He is admitting to auditory and visual hallucinations. Patient admits to using recreational drugs and cigarettes however did not state which ones he is using. PAST PSYCHIATRIC HISTORY: Patient states that he has a history of paranoid schizophrenia and substance abuse. Patient was previously on Haldol and Abilify in the past and also Tegretol. Patient is at psychiatric hospitalizations in the past at his previous one was in October 2019. Patient denies any psychiatric outpatient follow-up. Patient denies any history of suicide attempts in the past. PMH: Hypertension ALLERGIES: as per EMR CHEMICAL DEPENDENCY HISTORY: as per HPI FAMILY PSYCHIATRIC/SUBSTANCE USE HISTORY: Unable to obtain SOCIAL HISTORY: Unable to obtain MENTAL STATUS EXAM: General Appearance: Patient appears to be short in stature, impulsive, stated age is alert, impulsive and argumentative.. Patient appears to have poor hygiene and grooming. Behavior: Patient is seated without any agitated behavior. Impulsive and argumentative Speech: Patient's speech is fluent and nonpressured. Mumbles at times Mood/Affect: Patient reports their mood is "pissed", affect is congruent Suicidality/Homicidality: Patient denies having any homicidal ideation intent or plan. Denies any suicidal ideations intent or plan Perceptions: Patient denies any visual hallucinations and denies any auditory hallucinations Though content/process: Patient is endorsing paranoia. He is illogical and has loose associations. Memory and concentration: Unable to obtain Judgment and insight: poor STRENGTHS/WEAKNESSES: strength is that patient is resilient. Weakness is that patient has poor judgment and is impulsive INTELLECT: below average IMPRESSIONS: Schizophrenia Intellectual disability Antisocial personality disorder Nicotine dependence PLAN: -Patient is admitted under involuntary status to [facility] for stabilization of psychiatric symptoms and safety. Patient has not signed adult voluntary form and medication consent and is placed in patient's chart. A second certification was completed and along with petition will be filed for court. -Medications : Will start patient on paliperidone by mouth 3 mg daily at bedtime for mood stabilization/psychosis. Due to patient's noncompliance and poor insight only to transition patient on to long-acting injection. -Ativan and Haldol PRN for agitation/aggression -Patient was counselled on substance abuse -Patient was informed of the risks, benefits and side effects of the medication and patient verbally consented to taking the medications. Patient signed med consent form and was placed in chart. -Internal Medicine consult to perform medical evaluation and physical. -NRT - nicotine gum -SW on board for discharge planning. Encourage patient to participate in groups to work on coping skills. Will await deferral and court date.
[2020-09-22 14:06] LABS: Hemoglobin A1C 5.1 % (4.0-6.0)
[2020-09-22] MEDS: atenoloL 25 MG TAB PO SCH (23:08)
[2020-09-22] MEDS: PALIPERIDONE 3 MG TAB.ER.24 PO SCH (23:08)
--- NOTE | 2020-09-23 10:30 | P.PN ---
Progress Note - Text Progress Note Date: 09/23/20 Interval History: Patient was seen in his room this morning looking inside a bag with a security one to one of the side. Patient claims "I'm fine what do you want?" When technical report writer approached him. She was very blunt and concrete and appeared to be distracted during the conversation. He continues to be impulsdive and an difficult to redirect. He claims that he spoke to his mother yesterday and states "shes still being a bitch". He denied any changes in his mood or anxiety. He continues to state that "I'm not taking her medications I just want to get out of here". At this time patient denies any suicidal or homical ideations, intent or plan. Patient denies any auditory, visual hallucinations. Patient did not take his paliperidone last night. Mental Status Exam: General Appearance: Patient appears to be short in stature, impulsive, stated age is alert, impulsive, difficult to redirect. Patient appears to have poor hygiene and grooming. Behavior: Patient is seated without any agitated behavior. Impulsive Speech: Patient's speech is fluent and nonpressured. Mumbles at times Mood/Affect: Patient reports their mood is "pissed", affect is congruent Suicidality/Homicidality: Patient denies having any homicidal ideation intent or plan. Denies any suicidal ideations intent or plan Perceptions: Patient denies any visual hallucinations and denies any auditory hallucinations Though content/process: Patient is endorsing paranoia. He is illogical and has loose associations. Memory and concentration: Unable to obtain Judgment and insight: poor/impuslive. Assessment Schizophrenia Intellectual disability Antisocial personality disorder Nicotine dependence Plan: -Patient continues to meet criteria for inpatient psychiatric admission for symptom stabilization and safety. Patient has not signed adult voluntary form and medication consent and was placed in patient's chart. -Medications: Continue paliperidone 3 mg daily at bedtime for mood stabilization/psychosis. Due to patient's noncompliance and poor insight only to transition patient on to long-acting injection. Patient is currently not taking his medications. -When necessary Ativan and Haldol for agitation/aggression. -NRT - nicotine gum -SW on board for discharge planning. Encouraged the patient to participate in milieu. Currently awaiting deferral with personal injury attorney and court date.
[2020-09-23] MEDS: PALIPERIDONE 3 MG TAB.ER.24 PO SCH (20:32)
[2020-09-23] MEDS: atenoloL 25 MG TAB PO SCH (20:33)
--- NOTE | 2020-09-24 11:25 | P.PN ---
Progress Note - Text Progress Note Date: 09/24/20 Interval History: Patient was seen in his room this morning laying on his bed and sleeping. Rajani lea was awoken by repairer typewriter however monitor remained in his bed and had his sheet covering his face. He asked repairer typewriter what he wanted from him. He claims that he has no overnight complaints and states that "I'm fine". He remains fairly uncooperative and concrete and blunt with repairer typewriter. He did not speak further about his mother today and continues to claim that he does not want to go to group. He states that he slept fairly throughout the night and took the paliperidone last night. He denied any side effects to this medication. At this time patient denies any suicidal or homical ideations, intent or plan. Patient denies any auditory, visual hallucinations. Patient did not take his paliperidone last night. Mental Status Exam: General Appearance: Patient appears to be short in stature, impulsive, stated age is alert, impulsive, difficult to redirect. Patient appears to have poor hygiene and grooming. Behavior: Patient is seated without any agitated behavior. Impulsive, improving Speech: Patient's speech is fluent and nonpressured. Mumbles at times Mood/Affect: Patient reports their mood is "ok", affect is congruent Suicidality/Homicidality: Patient denies having any homicidal ideation intent or plan. Denies any suicidal ideations intent or plan Perceptions: Patient denies any visual hallucinations and denies any auditory hallucinations Though content/process: Patient is endorsing paranoia. He is illogical and has loose associations, improving mildly Memory and concentration: Alert and oriented 3, her attention. Judgment and insight: poor/impuslive, improving mildly Assessment Schizophrenia Intellectual disability Antisocial personality disorder Nicotine dependence Plan: -Patient continues to meet criteria for inpatient psychiatric admission for symptom stabilization and safety. Patient has not signed adult voluntary form and medication consent and was placed in patient's chart. -Medications: Continue paliperidone 3 mg daily at bedtime for mood stabilization/psychosis. Due to patient's noncompliance and poor insight only to transition patient on to long-acting injection. -When necessary Ativan and Haldol for agitation/aggression. -NRT - nicotine gum -SW on board for discharge planning. Encouraged the patient to participate in milieu. Patient signed a referral today with compliance mgr.
[2020-09-24] MEDS: PALIPERIDONE 3 MG TAB.ER.24 PO SCH (21:06)
[2020-09-24] MEDS: atenoloL 25 MG TAB PO SCH (21:07)
[2020-09-25 06:34] VITALS: TEMP 97.9
[2020-09-25] MEDS: NICOTINE POLACRILEX 2 MG GUM BUCCAL PRN ×2 (10:21→14:53)
[2020-09-25] MEDS ORDERED: PALIPERIDONE IM 234 MG/1.5 ML SYG IM STA (10:32)
--- NOTE | 2020-09-25 11:04 | P.PN ---
Progress Note - Text Progress Note Date: 09/25/20 Interval History: Patient was seen in this morning wandering the hallways and appeared to be more approachable and willing to speak a va underwriter. He was able to speak to va underwriter in the office today. He appears to be more appropriate during conversation. He claims that "my mom is been bugging me about taking my meds all the time" and claims that he is willing to take the long-acting injection to be more stable on his medication regimen. He states that his mood is "good" and is denying any depression or anxiety today. He states that he is able to sleep fairly throughout the night last night with no overnight complaints. He claims that he was sorry for his behavior earlier on and being "irritable and rude". He states that he has a fair appetite. He denied any side effects to this medication. At this time patient denies any suicidal or homical ideations, intent or plan. Patient denies any auditory, visual hallucinations. Mental Status Exam: General Appearance: Patient appears to be short in stature, more directable today and attempts to be cooperative. Patient appears to have improving hygiene and grooming. Behavior: Patient is seated without any agitated behavior. Speech: Patient's speech is fluent and nonpressured. Mood/Affect: Patient reports their mood is "ok", affect is congruent and more appropriate Suicidality/Homicidality: Patient denies having any homicidal ideation intent or plan. Denies any suicidal ideations intent or plan Perceptions: Patient denies any visual hallucinations and denies any auditory hallucinations Though content/process: Patient is more goal oriented. Logical today. Not endorsing any delusions. Memory and concentration: Alert and oriented 3, her attention. Judgment and insight: improving mildly Assessment Schizophrenia Intellectual disability Antisocial personality disorder Nicotine dependence Plan: -Patient continues to meet criteria for inpatient psychiatric admission for symptom stabilization and safety. Patient has not signed adult voluntary form and medication consent and was placed in patient's chart. -Medications: Continue paliperidone 3 mg daily at bedtime for mood stabilization/psychosis. Patient is agreeable to take Invega Sustenna 234 mg IM dose today. Will be due for 156 mg IM injection on 10/02/2020 and maintenance dose of 117 mg IM on 10/23/2020. -When necessary Ativan and Haldol for agitation/aggression. -NRT - nicotine gum -SW on board for discharge planning. Encouraged the patient to participate in milieu. Patient signed a deferral with utility lineman. Likely discharge tomorrow back home.
[2020-09-25] MEDS: PALIPERIDONE 3 MG TAB.ER.24 PO SCH (21:05)
[2020-09-25] MEDS: atenoloL 25 MG TAB PO SCH (21:05)
[2020-09-26 01:23] VITALS: BP 129/84; PULSE 50; RESP 16
--- NOTE | 2020-09-26 09:30 | P.DS ---
Providers Date of admission: 09/21/20 14:44 Expected date of discharge: 09/26/20 Attending physician: Malachi Hsu MD Consults: 09/21/20 14:46 Consult Physician Routine Consulting Provider: Inder Sainz Consult Reason/Comments: medical management Do you want consulting provider notified?: Yes Primary care physician: Stated None - Discharge Diagnosis(es) (1) Schizophrenia Current Visit: Yes Status: Acute Priority: High (2) Intellectual disability Current Visit: Yes Status: Acute Priority: Low (3) Antisocial behavior Current Visit: Yes Status: Acute Priority: Low (4) Nicotine dependence Current Visit: Yes Status: Acute Priority: Low Hospital Course: Admission HPI: Admission note was completed by sql report writer "Patient is a 25-year-old male who is a history of schizophrenia who presented to the hospital on a court pickup order. Patient presented to the hospital yesterday as he has a history of schizophrenia and apparently has been court ordered for a pickup by the lead driver as his mother had complaints of patient's aggressive behavior at home. According to ER report patient apparently has not been taking his medications and has had an increase in his agitation and auditory and visual hallucinations. Patient was restrained in the ER twice and given prn meds for aggression towards staff. According to the petition filled out by EPS nurse claims that patient has been noncompliant with his treatment and therapy and has no insight as to his need to comply and has a history of paranoid schizophrenia. Patient was seen laying down on a chair in the lounge and was agreeable to speak to sql report writer briefly in his room. Patient had very little interest in communicating with sql report writer and was fixated on being discharged and minimizing symptoms. He had very poor insight into his condition and had poor hygiene and grooming. He appeared to be impulsive and fairly upset during the conversation. He also appeared to be restless and unable to sit still and began wandering the hallways. He claims that his mom was being "stupid" and claims that she was upset at him for "talking to myself". He states that "everybody talks themselves" and claims that now his mood is " pissed". He also was endorsing paranoia and states that "people are following me". When asked about his medications patient states that "I'm not taking any of her medications". Patient denies any suicidal or homicidal ideations intent or plan. He is admitting to auditory and visual hallucinations. Patient admits to using recreational drugs and cigarettes however did not state which ones he is using." Hospital course: Upon admission to the unit patient was initially aggressive, hostile and psychotic. Patient was however admitted involuntarily and a second clinical certificate was completed and faxed to the courts. Patient ended up signing a deferral with his commercial attorney and was agreeable to treatment on the unit. Patient did have anger outbursts and was destructive on the unit initially however with time and treatment patient got along well with other patients on the unit and followed unit protocol. Patient was initially not compliant with the medications however after signing deferral he became compliant with his meds and denied any side effects throughout hospital course. Patient was started on paliperidone by mouth up to 3 mg daily at bedtime for psychosis and then patient was transitioned onto Invega Sustenna and given 234 mg IM injection on 09/25/2020. Patient will be due for his next injection of 156 mg IM on 10/02/2020 and his monthly maintenance dose of 117 mg IM on 10/23/20. Patient spoke of his stressors and engaged in individual therapy. Patient was also seen by medical team for history and physical exam. Throughout the course of the hospitalization patient gradually improved with regards to mood, irritability, anxiety and psychosis, sleep and became more future oriented with improved insight and judgment. On the day of discharge patient denied any suicidal or homicidal ideations intent or plan denied any auditory or visual hallucinations. Patient endorsed wanting to live for his health and family. The patient denied any access to guns or weapons. Patient denied any paranoia and did not endorse any delusions. Patient does not have a significant history of substance abuse however was counseled on abstaining from all substances including alcohol and marijuana. Patient was also counseled on the medications and need for regular compliance and was encouraged to follow-up with their outpatient appointment for mental health and also for primary care. Prior to discharge a family meeting will be arranged by social work assistant to answer any questions and ensure safety upon discharge. Patient will be followed closely by [facility] upon discharge. Mental status exam: General Appearance: Patient appears to be short in stature, stated age is alert, pleasant, and attempts to be cooperative. Patient is in no acute distress and has improved hygiene and grooming Behavior: Patient is calmly seated without any agitated behavior. Speech: Patient's speech is fluent and nonpressured. Mood/Affect: Patient reports their mood is "better", affect is congruent and euthymic. Suicidality/Homicidality: Patient denies having any suicidal or homicidal ideation intent or plan. Perceptions: Patient denies any auditory or visual hallucinations. Though content/process: There is no evidence of any delusional thought content and thought process is linear and goal-directed. Memory and concentration: AOX3, grossly intact for the purposes of this session. Can spell "WORLD" backwards correctly. Judgment and insight: chronically poor, however has improved with guarded prognosis Impression: Schizophrenia Intellectual disability Antisocial behavior Nicotine dependence Plan: -Continue with discharge today as patient has improved and stabilized psychiatrically and is not currently an imminent threat to himself and/or others. Patient will remain at chronically elevated risk for harm to self and/or others due to his impulsivity and chronically poor insight -Continue medications: Paliperidone by mouth was discontinued prior to discharge. Patient was given Invega Sustenna and given 234 mg IM injection on 09/25/2020. Patient will be due for his next injection of 156 mg IM on 10/02/2020 and his monthly maintenance dose of 117 mg IM on 10/23/20. -Patient was counseled on the need for medication compliance and appropriate follow-up at mental health and also primary care for medical issues. Patient verbalized understanding and agreed. -Social work to arrange for and conduct family meeting to ensure safety upon discharge and answer any questions/concerns. Social work also to arrange for patients follow up appointments with [facility] for psychiatric care along with follow up with primary care provider. -Patient counseled on abstaining from recreational drugs and marijuana and alcohol. Was informed/educated on the adverse effects on their physical and me ntal health. Patient verbally agreed and understood. -Patient was instructed to return to the hospital or seek immediate medical care if their psychiatric or medical symptoms do worsen or reoccur. Allergies Allergy/AdvReac Type Severity Reaction Status Date / Time No Known Allergies Allergy Verified 09/20/20 15:54 Laboratory Results WBC 7.2 k/uL (3.8-10.6) 09/22/20 06:16 RBC 4.53 m/uL (4.30-5.90) 09/22/20 06:16 Hgb 14.2 gm/dL (13.0-17.5) 09/22/20 06:16 Hct 42.2 % (39.0-53.0) 09/22/20 06:16 MCV 93.2 fL (80.0-100.0) 09/22/20 06:16 MCH 31.4 pg (25.0-35.0) 09/22/20 06:16 MCHC 33.7 g/dL (31.0-37.0) 09/22/20 06:16 RDW 12.9 % (11.5-15.5) 09/22/20 06:16 Plt Count 225 k/uL (150-450) 09/22/20 06:16 MPV 7.9 09/22/20 06:16 Neutrophils % 55 % 09/22/20 06:16 Lymphocytes % 34 % 09/22/20 06:16 Monocytes % 6 % 09/22/20 06:16 Eosinophils % 2 % 09/22/20 06:16 Basophils % 1 % 09/22/20 06:16 Neutrophils # 3.9 k/uL (1.3-7.7) 09/22/20 06:16 Lymphocytes # 2.5 k/uL (1.0-4.8) 09/22/20 06:16 Monocytes # 0.4 k/uL (0-1.0) 09/22/20 06:16 Eosinophils # 0.2 k/uL (0-0.7) 09/22/20 06:16 Basophils # 0.1 k/uL (0-0.2) 09/22/20 06:16 Sodium 140 mmol/L (137-145) 09/22/20 06:16 Potassium 4.0 mmol/L (3.5-5.1) 09/22/20 06:16 Chloride 104 mmol/L (98-107) 09/22/20 06:16 Carbon Dioxide 32 mmol/L (22-30) H 09/22/20 06:16 Anion Gap 4 mmol/L 09/22/20 06:16 BUN 11 mg/dL (9-20) 09/22/20 06:16 Creatinine 0.94 mg/dL (0.66-1.25) 09/22/20 06:16 Est GFR (CKD-EPI)AfAm >90 (>60 ml/min/1.73 sqM) 09/22/20 06:16 Est GFR (CKD-EPI)NonAf >90 (>60 ml/min/1.73 sqM) 09/22/20 06:16 Glucose 88 mg/dL (74-99) 09/22/20 06:[address] Glu mg/dL 100 09/22/20 06:16 Hemoglobin A1c 5.1 % (4.0-6.0) 09/22/20 06:16 Calcium 9.4 mg/dL (8.4-10.2) 09/22/20 06:16 Total Bilirubin 0.3 mg/dL (0.2-1.3) 09/22/20 06:16 AST 31 U/L (17-59) 09/22/20 06:16 ALT 19 U/L (4-49) 09/22/20 06:16 Alkaline Phosphatase 65 U/L (38-126) 09/22/20 06:16 Total Protein 6.5 g/dL (6.3-8.2) 09/22/20 06:16 Albumin 3.9 g/dL (3.5-5.0) 09/22/20 06:16 Triglycerides 70 mg/dL (<150) 09/22/20 06:16 Cholesterol 111 mg/dL (<200) 09/22/20 06:16 LDL Cholesterol, Calc 55 mg/dL (0-99) 09/22/20 06:16 HDL Cholesterol 42 mg/dL (40-60) 09/22/20 06:16 TSH 1.930 mIU/L (0.465-4.680) 09/22/20 06:16 Coronavirus (PCR) Not Detected (Not Detectd) 09/20/20 18:30 Vital Signs Temp 97.9 F 09/26/20 01:22 Pulse 50 L 09/26/20 01:22 Resp 16 09/26/20 01:22 BP 129/84 09/26/20 01:22 Pulse Ox 98 09/21/20 15:12 Patient Condition at Discharge: Stable Plan - Discharge Summary New Discharge Prescriptions: New Paliperidone IM [Invega Sustenna] 156 mg IM ONCE #1 syr Acetaminophen Tab [Tylenol] 650 mg PO Q4HR PRN tab PRN Reason: Pain/Discomfort Paliperidone Palmitate [Invega Sustenna] 117 mg IM QMONTHLY #1 syr Nicotine Polacrilex [Nicorette] 2 mg BUCCAL Q4HR PRN 14 Days gum PRN Reason: Nicotine Cravings atenoloL [Tenormin] 25 mg PO HS 30 Days tab Discontinued atenoloL [Tenormin] 25 mg PO HS ARIPiprazole [Abilify] 20 mg PO HS #20 tab carBAMazepine [TEGretol] 200 mg PO BID haloperidoL [Haldol] 5 mg PO HS PRN PRN Reason: Anxiety Discharge Medication List Acetaminophen Tab [Tylenol] 650 mg PO Q4HR PRN tab 09/26/20 [Rx] Nicotine Polacrilex [Nicorette] 2 mg BUCCAL Q4HR PRN 14 Days gum 09/26/20 [Rx] Paliperidone IM [Invega Sustenna] 156 mg IM ONCE #1 syr 09/26/20 [Rx] Paliperidone Palmitate [Invega Sustenna] 117 mg IM QMONTHLY #1 syr 09/26/20 [Rx] atenoloL [Tenormin] 25 mg PO HS 30 Days tab 09/26/20 [Rx] Follow up Appointment(s)/Referral(s): [facility] [Outside] - 10/01/20 11:15 am (10-01-20 @ 11:15 with Don Anderson (court hearing on Zoom at 11:30) at [facility] office 10-03-20 @ 2:00 with FERDINAND Leyva at [facility] office ) [facility] [[facility]] - 1 Week Patient Instructions/Handouts: How to Stop Smoking (DC), Bipolar Disorder (DC) Activity/Diet/Wound Care/Special Instructions: Activity and diet as tolerated. Avoid the use of street drugs and alcohol. Take all medications as prescribed. When you are in need of refills on your medications please contact your medical provider and/or outpatient psychiatrist to have this done. Please go to scheduled outpatient appointment for aftercare treatment. If symptoms return or become worse, call the crisis line at and/or go to the nearest emergency room for evaluation. Discharge Disposition: HOME SELF-CARE
== END 2020-09-26 11:58 | disposition home or self-care (01) | DRG 885 ==
LOC: EC 15:46 → 3MHU 09-21 14:44
PROVIDERS: ADMIT Psychiatry & Neurology Psychiatry; ATTEND Psychiatry & Neurology Psychiatry
DX: F20.0 Paranoid schizophrenia (principal); F31.9 Bipolar disorder, unspecified; F12.90 Cannabis use, unspecified, uncomplicated; F17.210 Nicotine dependence, cigarettes, uncomplicated; F60.2 Antisocial personality disorder; F79 Unspecified intellectual disabilities; F84.0 Autistic disorder; I10 Essential (primary) hypertension; Z72.811 Adult antisocial behavior; Z78.1 Physical restraint status; Z79.899 Other long term (current) drug therapy; Z91.14 Patient's other noncompliance with medication regimen; Z20.822 Contact with and (suspected) exposure to COVID-19
CPT/HCPCS: 36415; 80053; 80061; 83036; 84443; 85025; 87635; 96372; 99285

== ENCOUNTER 2021-09-13 16:08 | Emergency (ER) | payer OTHER ==
[2021-09-13 16:46] VITALS: RESP 18
[2021-09-13] MEDS ORDERED: methylPREDNISolone SOD SUCCI 125 MG/2 ML VIAL IV STA (17:42)
[2021-09-13] MEDS ORDERED: FAMOTIDINE 20 MG/2 ML VIAL IV STA (17:42)
[2021-09-13] MEDS ORDERED: diphenhydrAMINE 50 MG/ML 1 ML VIAL IVP STA (17:48)
--- NOTE | 2021-09-13 19:08 | ED ---
General Adult HPI - General Chief complaint: Skin/Abscess/Foreign Body Stated complaint: facial pain/rash Time Seen by Provider: 09/13/21 17:32 Source: patient Mode of arrival: ambulatory Limitations: no limitations - History of Present Illness Initial comments: Patient is a 26-year-old male presents to the emergency department for evaluation of right sided face rash. Patient states he noticed a rash yesterday. He states the rash feels warm otherwise does not hurt or itch. Patient denies history of seasonal allergies. He denies known bite, sting, or scratch. He denies use of new hygiene products. Patient states this happened once before after he slept on his pillow. Patient denies throat swelling and trouble breathing however states there is irritation when he swallows on the right side of his throat. He denies tooth pain and upper respiratory symptoms. Denies eye pain and redness. Denies fever and chills. Denies history of anaphylaxis and chicken pox. - Related Data Previous Rx's Medication Instructions Recorded Acetaminophen Tab [Tylenol] 650 mg PO Q4HR PRN tab 09/26/20 Nicotine Gum (Polacrilex) 2 mg BUCCAL Q4HR PRN 14 Days gum 09/26/20 [Nicorette] Paliperidone IM [Invega Sustenna] 156 mg IM ONCE #1 syr 09/26/20 Paliperidone Palmitate [Invega 117 mg IM QMONTHLY #1 syr 09/26/20 Sustenna] atenoloL [Tenormin] 25 mg PO HS 30 Days tab 09/26/20 Hydrocortisone Valerate 1 applic TOPICAL DAILY #60 gm 09/13/21 [Hydrocortisone Valerate 0.2%] Allergies Allergy/AdvReac Type Severity Reaction Status Date / Time No Known Allergies Allergy Verified 09/13/21 16:46 Review of Systems ROS Statement: Those systems with pertinent positive or pertinent negative responses have been documented in the HPI. ROS Other: All systems not noted in ROS Statement are negative. Past Medical History Past Medical History: Hypertension Additional Past Medical History / Comment(s): abnormal heart beat History of Any Multi-Drug Resistant Organisms: None Reported Past Surgical History: No Surgical Hx Reported Past Psychological History: ADD/ADHD, Bipolar, Depression, Schizophrenia Smoking Status: Current every day smoker Past Alcohol Use History: None Reported Past Drug Use History: Cocaine, Marijuana, Methamphetamine General Exam Limitations: no limitations General appearance: alert, in no apparent distress Head exam: Present: atraumatic, normocephalic, normal inspection Eye exam: Present: normal appearance, PERRL, EOMI. Absent: scleral icterus, conjunctival injection, periorbital swelling, periorbital tenderness ENT exam: Present: normal oropharynx Neck exam: Present: normal inspection, tenderness (Mild with right-sided palpation under the lateral chin). Absent: meningismus, lymphadenopathy Respiratory exam: Present: normal lung sounds bilaterally. Absent: respiratory distress, wheezes, rales, rhonchi, stridor Cardiovascular Exam: Present: regular rate, normal rhythm, normal heart sounds. Absent: systolic murmur, diastolic murmur, rubs, gallop, clicks GI/Abdominal exam: Present: soft, normal bowel sounds. Absent: distended, tenderness, guarding, rebound, rigid Extremities exam: Present: normal inspection Neurological exam: Present: alert, oriented X3, CN II-XII intact Psychiatric exam: Present: normal affect, normal mood Skin exam: Present: warm, dry, intact, normal color, rash (Erythematous well demarcated rash over the right cheek. Minimal erythema above the right eye under the eyebrow. ) Course Vital Signs 09/13/21 16:44 Temperature 98.4 F Pulse Rate 57 L Respiratory 18 Rate Blood Pressure 134/82 O2 Sat by Pulse 98 Oximetry Medical Decision Making - Medical Decision Making This is a 26-year-old male who presents with right sided face rash. Thorough history and examination were performed. There are no known precipitating factors. Patient admits to some right-sided throat irritation but otherwise denies throat swelling or trouble breathing. The pharynx is normal in appearance with no erythema, swelling, or exudate. There is an erythematous macular rash over the right cheek and chin with minimal erythema above the right eye under the right eyebrow. There is no eye involvement. Patient does not have periorbital swelling, eye redness, or eye pain. There is no pain with EOMs. The rash is mildly warm and not painful at all to the touch. It is not pruritic. Patient's history of a presentation does not suggest a certain etiology for rash. With lack of pain and swelling of the rash I have very low suspicion for cellulitis. With no vesicles or pain and no history of chickenpox, shingles is unlikely. Patient given Benadryl, Solu-Medrol, and Pepcid in the emergency department with some improvement of symptoms however I did notice some diffuse erythema of left cheek during progression of his emergency stay. Patient will be discharged with hydrocortisone cream and strict return parameters. Patient assures me he will call his primary care provider first thing in the morning and return if symptoms worsen or if he experiences thorough swelling or trouble breathing. He is encouraged to continue Benadryl at home. Dr. Lantigua is my attending. Disposition Clinical Impression: Rash Disposition: HOME SELF-CARE Condition: Good Instructions (If sedation given, give patient instructions): Acute Rash (ED) Additional Instructions: Please apply hydrocortisone cream as directed. Take Benadryl [id number] for rash as well. Follow-up with primary care provider in one to 2 days. Return to the emergency department if you experience new, concerning, or worsening symptoms. Prescriptions: Hydrocortisone Valerate [Hydrocortisone Valerate 0.2%] 1 applic TOPICAL DAILY #60 gm Is patient prescribed a controlled substance at d/c from ED?: No Referrals: Stewart Yoder MD [Primary Care Provider] - 1-2 days Time of Disposition: 19:08
--- NOTE | 2021-09-13 19:35 | ED ---
General Adult HPI - General Time Seen by Provider: 09/13/21 17:32 - Related Data Previous Rx's Medication Instructions Recorded Acetaminophen Tab [Tylenol] 650 mg PO Q4HR PRN tab 09/26/20 Nicotine Gum (Polacrilex) 2 mg BUCCAL Q4HR PRN 14 Days gum 09/26/20 [Nicorette] Paliperidone IM [Invega Sustenna] 156 mg IM ONCE #1 syr 09/26/20 Paliperidone Palmitate [Invega 117 mg IM QMONTHLY #1 syr 09/26/20 Sustenna] atenoloL [Tenormin] 25 mg PO HS 30 Days tab 09/26/20 Hydrocortisone Valerate 1 applic TOPICAL DAILY #60 gm 09/13/21 [Hydrocortisone Valerate 0.2%] Allergies Allergy/AdvReac Type Severity Reaction Status Date / Time No Known Allergies Allergy Verified 09/13/21 16:46 Review of Systems ROS Statement: Those systems with pertinent positive or pertinent negative responses have been documented in the HPI. Past Medical History Additional Past Medical History / Comment(s): abnormal heart beat Course Vital Signs 09/13/21 09/13/21 16:44 21:14 Temperature 98.4 F 97.9 F Pulse Rate 57 L 69 Respiratory 18 18 Rate Blood Pressure 134/82 143/81 O2 Sat by Pulse 98 100 Oximetry Medical Decision Making - Lab Data Lab Results 09/13/21 Range/Units 19:51 Group A Strep Rapid Negative (Negative) Disposition Clinical Impression: Rash Disposition: HOME SELF-CARE Prescriptions: Hydrocortisone Valerate [Hydrocortisone Valerate 0.2%] 1 applic TOPICAL DAILY #60 gm Is patient prescribed a controlled substance at d/c from ED?: No
[2021-09-13 21:27] VITALS: BP 143/81; PULSE 69; TEMP 97.9
== END 2021-09-13 21:20 | disposition home or self-care (01) ==
LOC: EC 16:08
DX: R21 Rash and other nonspecific skin eruption (principal); I10 Essential (primary) hypertension; F31.9 Bipolar disorder, unspecified; F20.9 Schizophrenia, unspecified; F12.90 Cannabis use, unspecified, uncomplicated; F17.200 Nicotine dependence, unspecified, uncomplicated; F15.90 Other stimulant use, unspecified, uncomplicated; F14.90 Cocaine use, unspecified, uncomplicated; Z79.899 Other long term (current) drug therapy
CPT/HCPCS: 87081; 87430; 99283; 96374; 96375 ×2; J1200; J2930

== ENCOUNTER 2021-09-15 01:32 | Emergency (ER) | payer OTHER ==
[2021-09-15 01:40] VITALS: RESP 18; TEMP 98
--- NOTE | 2021-09-15 03:19 | ED ---
General Adult HPI - General Chief complaint: Skin/Abscess/Foreign Body Stated complaint: Rash Time Seen by Provider: 09/15/21 03:00 Source: patient, RN notes reviewed, old records reviewed Mode of arrival: ambulatory Limitations: no limitations - History of Present Illness Initial comments: This is a 26-year-old male that presents with a rash on his face for 3 days. Patient states he was seen here on September 13 and prescribed Benadryl and hydrocortisone cream but he states could not afford hydrocortisone cream. He states that he did buy hydrocortisone cream at the [employer] store and has been using that with no relief. Patient states rash seems to be spreading. He states may have been stung by bees and states his mom is ALLERGIC to bees. Patient states it also could be related to a [place] that he took. Patient is unable to identify any specific cause of the facial redness. He states he also has an area of redness on his left upper arm and right antecubital fossa. He denies history of eczema. He denies any fevers. States he smokes marijuana but denies any other drug use. Patient has history of bipolar and schizophrenia -: days(s) (3) Location: face Radiation: non-radiation Improves with: none Worsens with: none Associated Symptoms: headaches Treatments Prior to Arrival: none - Related Data Previous Rx's Medication Instructions Recorded Acetaminophen Tab [Tylenol] 650 mg PO Q4HR PRN tab 09/26/20 Nicotine Gum (Polacrilex) 2 mg BUCCAL Q4HR PRN 14 Days gum 09/26/20 [Nicorette] Paliperidone IM [Invega Sustenna] 156 mg IM ONCE #1 syr 09/26/20 Paliperidone Palmitate [Invega 117 mg IM QMONTHLY #1 syr 09/26/20 Sustenna] atenoloL [Tenormin] 25 mg PO HS 30 Days tab 09/26/20 Hydrocortisone Valerate 1 applic TOPICAL DAILY #60 gm 09/13/21 [Hydrocortisone Valerate 0.2%] Cephalexin [Keflex] 500 mg PO Q6HR 7 Days #28 cap 09/15/21 Allergies Allergy/AdvReac Type Severity Reaction Status Date / Time No Known Allergies Allergy Verified 09/15/21 01:40 Review of Systems ROS Statement: Those systems with pertinent positive or pertinent negative responses have been documented in the HPI. ROS Other: All systems not noted in ROS Statement are negative. Past Medical History Past Medical History: Hypertension Additional Past Medical History / Comment(s): abnormal heart beat History of Any Multi-Drug Resistant Organisms: None Reported Past Surgical History: No Surgical Hx Reported Past Psychological History: ADD/ADHD, Bipolar, Depression, Schizophrenia Smoking Status: Current every day smoker Past Alcohol Use History: None Reported Past Drug Use History: Cocaine, Marijuana, Methamphetamine, Opiates General Exam Limitations: no limitations General appearance: alert, in no apparent distress Head exam: Present: atraumatic, normocephalic Eye exam: Present: normal appearance, EOMI. Absent: scleral icterus, conjunctival injection, periorbital swelling, periorbital tenderness ENT exam: Present: normal exam, normal oropharynx, mucous membranes moist Neck exam: Present: normal inspection, full ROM. Absent: tenderness, meningismus, lymphadenopathy, thyromegaly Respiratory exam: Present: normal lung sounds bilaterally. Absent: respiratory distress, accessory muscle use Cardiovascular Exam: Present: regular rate Extremities exam: Present: normal inspection, full ROM, normal capillary refill. Absent: tenderness, pedal edema, calf tenderness Back exam: Present: normal inspection, full ROM. Absent: tenderness, CVA tenderness (R), CVA tenderness (L), rash noted Neurological exam: Present: alert, oriented X3, normal gait Psychiatric exam: Present: normal affect, normal mood Skin exam: Present: warm, dry, erythema (right sided facial erythema progressing across nasal bridge to left maxilla). Absent: cyanosis, diaphoretic, petechiae, pallor Course Vital Signs 09/15/21 09/15/21 01:35 03:24 Temperature 98 F Pulse Rate 59 L 65 Respiratory 18 18 Rate Blood Pressure 163/115 154/94 O2 Sat by Pulse 100 Oximetry Medical Decision Making - Medical Decision Making 26-year-old male presents with 3 days of facial redness. He was seen here on September 13 and prescribed hydrocortisone and Benadryl. He has not been taking the Benadryl but did buy [id number] hydrocortisone cream with no relief. Patient states the rash seems to be spreading to the left side of his face and is tender to touch. The rash is not raised, skin is dry and red, there is no identified abscesses. There is no lymphadenopathy. Dr. Conway at bedside. He denies any pain with eye movement, there is no periorbital swelling, no fevers, no nausea vomiting. He'll be treated with Keflex for a facial cellulitis and given a take-home pack of Keflex at discharge. Disposition Clinical Impression: Cellulitis Disposition: HOME SELF-CARE Condition: Good Instructions (If sedation given, give patient instructions): Cellulitis (ED) Additional Instructions: Stop using the hydrocortisone on your face. Take antibiotics as prescribed. You can continue to use Benadryl as needed for any itching. Follow-up with your primary care doctor this week. Return to the emergency room with any new or concerning symptoms. Prescriptions: Cephalexin [Keflex] 500 mg PO Q6HR 7 Days #28 cap Is patient prescribed a controlled substance at d/c from ED?: No Referrals: Stewart Yoder MD [Primary Care Provider] - 1-2 days Time of Disposition: 03:24
[2021-09-15] MEDS ORDERED: CEPHALEXIN 500MG STARTER PACK 4 CAP BTL PO STA (03:24)
[2021-09-15 03:25] VITALS: BP 154/94; PULSE 65
== END 2021-09-15 03:41 | disposition home or self-care (01) ==
LOC: EC 01:32
DX: L03.211 Cellulitis of face (principal); F17.200 Nicotine dependence, unspecified, uncomplicated; I10 Essential (primary) hypertension
CPT/HCPCS: 99282

== ENCOUNTER 2021-09-15 13:26 | Emergency (ER) | payer OTHER ==
[2021-09-15 14:21] VITALS: PULSE 54; RESP 18; TEMP 98.6
[2021-09-15 14:22] VITALS: BP 156/94
--- NOTE | 2021-09-15 14:26 | ED ---
General Adult HPI - General Chief complaint: Skin/Abscess/Foreign Body Stated complaint: Bug Bite Reaction, Facial Swelling, Rash Time Seen by Provider: 09/15/21 14:18 Source: patient, RN notes reviewed, old records reviewed Mode of arrival: ambulatory Limitations: no limitations - History of Present Illness Initial comments: 26-year-old male with rash to the face which has progressed over the past several days. He states he was stung by a bee possibly on both sides of his face. No difficulty breathing. He was on oral antibiotics and took one [place] adryl in the past 5 days without significant improvement. No fevers. Patient has history of bipolar. - Related Data Previous Rx's Medication Instructions Recorded Acetaminophen Tab [Tylenol] 650 mg PO Q4HR PRN tab 09/26/20 Nicotine Gum (Polacrilex) 2 mg BUCCAL Q4HR PRN 14 Days gum 09/26/20 [Nicorette] Paliperidone IM [Invega Sustenna] 156 mg IM ONCE #1 syr 09/26/20 Paliperidone Palmitate [Invega 117 mg IM QMONTHLY #1 syr 09/26/20 Sustenna] atenoloL [Tenormin] 25 mg PO HS 30 Days tab 09/26/20 Hydrocortisone Valerate 1 applic TOPICAL DAILY #60 gm 09/13/21 [Hydrocortisone Valerate 0.2%] Cephalexin [Keflex] 500 mg PO Q6HR 7 Days #28 cap 09/15/21 Cephalexin [Keflex] 500 mg PO QID #40 cap 09/15/21 Mupirocin 2% Oint [Bactroban 2% 1 applic TOPICAL TID #22 gm 09/15/21 Oint] Sulfamethox-Tmp 800-160Mg [Bactrim 1 tab PO Q12HR #28 tab 09/15/21 DS 800-160 mg] diphenhydrAMINE [Benadryl] 25 mg PO TID #21 capsule 09/15/21 methylPREDNISolone Dose Pack 4 mg PO DIRECTED #21 packet 09/15/21 [Medrol Dose Pack] Allergies Allergy/AdvReac Type Severity Reaction Status Date / Time No Known Allergies Allergy Verified 09/15/21 14:21 Review of Systems ROS Statement: Those systems with pertinent positive or pertinent negative responses have been documented in the HPI. ROS Other: All systems not noted in ROS Statement are negative. Past Medical History Past Medical History: Hypertension Additional Past Medical History / Comment(s): abnormal heart beat History of Any Multi-Drug Resistant Organisms: None Reported Past Surgical History: No Surgical Hx Reported Past Psychological History: ADD/ADHD, Bipolar, Depression, Schizophrenia Smoking Status: Current every day smoker Past Alcohol Use History: None Reported Past Drug Use History: Cocaine, Marijuana, Methamphetamine, Opiates General Exam Limitations: no limitations General appearance: alert, in no apparent distress Head exam: Present: atraumatic, normocephalic Eye exam: Present: normal appearance Neck exam: Present: normal inspection Respiratory exam: Present: normal lung sounds bilaterally. Absent: respiratory distress, wheezes Cardiovascular Exam: Present: regular rate, normal rhythm GI/Abdominal exam: Present: soft. Absent: distended, tenderness Neurological exam: Present: alert, motor sensory deficit Psychiatric exam: Present: flat affect Skin exam: Present: other (Erythema 2. On with the right side of the face. There is some yellow crusting as well. This is nontender. There is no fluctuance. No induration.) Course Vital Signs 09/15/21 14:20 Temperature 98.6 F Pulse Rate 54 L Respiratory 18 Rate Blood Pressure 156/94 O2 Sat by Pulse 100 Oximetry Medical Decision Making - Medical Decision Making 26-year-old male with progressive rash after being stung by a bee. I suspect this is predominantly ALLERGIC in nature but there may be a concurrent infectious process going on. He will take steroids, Benadryl, and oral antibiotics as well as topical antibiotics. He should follow-up with his prima care physician. Disposition Clinical Impression: Erysipelas, Allergic reaction Disposition: HOME SELF-CARE Condition: Stable Instructions (If sedation given, give patient instructions): Cellulitis (ED) Prescriptions: Sulfamethox-Tmp 800-160Mg [Bactrim DS 800-160 mg] 1 tab PO Q12HR #28 tab Mupirocin 2% Oint [Bactroban 2% Oint] 1 applic TOPICAL TID #22 gm diphenhydrAMINE [Benadryl] 25 mg PO TID #21 capsule Cephalexin [Keflex] 500 mg PO QID #40 cap methylPREDNISolone Dose Pack [Medrol Dose Pack] 4 mg PO DIRECTED #21 packet Is patient prescribed a controlled substance at d/c from ED?: No Referrals: Stewart Yoder MD [Primary Care Provider] - 1-2 days Time of Disposition: 14:24
== END 2021-09-15 14:54 | disposition home or self-care (01) ==
LOC: EC 13:26
DX: A46 Erysipelas (principal); F17.200 Nicotine dependence, unspecified, uncomplicated; I10 Essential (primary) hypertension
CPT/HCPCS: 99283

== ENCOUNTER → 2023-12-26 | Outpatient (CLI) | payer OTHER | END | disposition home or self-care (01) | LOC: LABWHC1 13:34 | PROVIDERS: ATTEND Psychiatry & Neurology Psychiatry | DX: F20.9 Schizophrenia, unspecified (principal); F15.20 Other stimulant dependence, uncomplicated | CPT/HCPCS: 80306 ==